=== PATIENT | female | born 1945 | race American Indian/Alaskan Native ===

== ENCOUNTER 2016-11-11 23:53 | Emergency (ER) | payer MEDICARE, BC ==
[2016-11-12] MEDS ORDERED: DiphenhydrAMINE 50 mg/ml Inj IVP STA (00:12)
[2016-11-12] MEDS ORDERED: DiphenhydrAMINE 50 mg/ml Inj ONE (00:13)
--- NOTE | 2016-11-12 00:35 | C.PDOC ---
History Of Present Illness Patient is a 71 year old female who presents to the ER with a complaint of a skin rash and itchiness for the past week. Patient denies SOB, throat swelling or chest pain. Chief Complaint (Nursing): Abnormal Skin Integrity History Per: Patient History/Exam Limitations: no limitations Onset/Duration Of Symptoms: Days (7) Current Symptoms Are (Timing): Still Present Quality Of Symptoms: Itching Recent travel outside of the [place]: No Past Medical History Reviewed: Historical Data, Nursing Documentation, Vital Signs Vital Signs: Last Vital Signs Temp 98 F 11/12/16 00:01 Pulse 93 H 11/12/16 00:01 Resp 20 11/12/16 00:01 BP 125/89 11/12/16 00:01 Pulse Ox 96 11/12/16 01:22 - Medical History PMH: Diabetes, HTN - [facility] Procedures CONTINUOUS INVASIVE MECHANICAL VENTILATION <96 CONSEC HRS (07/12/13) INSERT ENDOTRACHEAL TUBE (07/12/13) REPLACE GASTROSTOMY TUBE (07/13/14) Family History: States: Unknown Family Hx - Social History Hx Tobacco Use: No Hx Alcohol Use: No Hx Substance Use: No - Immunization History Hx Tetanus Toxoid Vaccination: No Hx Influenza Vaccination: Yes Hx Pneumococcal Vaccination: No Review Of Systems ENT: Negative for: Throat Swelling Cardiovascular: Negative for: Chest Pain Respiratory: Negative for: Shortness of Breath Skin: Positive for: Rash Physical Exam - Physical Exam Appears: Well, Non-toxic, No Acute Distress Skin: Normal Color, Warm, Dry, Rash (Upper extremities) Head: Atraumatic, Normacephalic Eye(s): bilateral: Normal Inspection, EOMI Oral Mucosa: Moist Throat: Normal, No Erythema, No Exudate Chest: Symmetrical, No Tenderness Cardiovascular: Rhythm Regular, No Murmur Respiratory: Normal Breath Sounds, No Rales, No Rhonchi, No Wheezing Gastrointestinal/Abdominal: Soft, No Tenderness Neurological/Psych: Oriented x3, Normal Speech, Normal Cognition ED Course And Treatment O2 Sat by Pulse Oximetry: 96 (Room air) Pulse Ox Interpretation: Normal Progress Note: Benadryl, pepcid and solu-medrol administered. Disposition Counseled Patient/Family Regarding: Diagnosis - Disposition Referrals: [facility] [Outside] Disposition: HOME/ ROUTINE Disposition Time: :19 Condition: STABLE Prescriptions: DiphenhydrAMINE [Benadryl] 25 mg PO Q6 #20 cap Famotidine [Pepcid] 20 mg PO BID #14 tab Instructions: General Allergic Reaction (ED) Forms: Gen Discharge Inst Guamanian Print Language: AZERBAIJANI - Clinical Impression Clinical Impression: Allergic reaction - Scribe Statement The provider has reviewed the documentation as recorded by the Scribe Martinez Argueta All medical record entries made by the Scribe were at my direction and personally dictated by me. I have reviewed the chart and agree that the record accurately reflects my personal performance of the history, physical exam, medical decision making, and the department course for this patient. I have also personally directed, reviewed, and agree with the discharge instructions and disposition.
[2016-11-12 01:29] VITALS: BP 122/86; PULSE 78; RESP 18; TEMP 98.1; O2SAT 98
== END 2016-11-12 01:29 | disposition home or self-care (01) ==
LOC: C.ER 23:53
DX: T78.49XA Other allergy, initial encounter (principal)
CPT/HCPCS: 96374; 96375; 99284; J1200; J2930

== ENCOUNTER 2017-08-22 16:25 | Inpatient (IN) | payer MEDICARE, BC ==
[2017-08-22 16:39] VITALS: BMI 19.8
[2017-08-22] MEDS ORDERED: Iodixanol 320 MG/ML 100 ML BOTTLE IV ONE (16:43)
[2017-08-22 16:55] LABS: BASO # 0.1 K/uL (0.0-0.2); BASO % 1.5 % (0.0-2.0); EOS # 0.1 K/uL (0.0-0.7); EOS % 1.4 % (0.0-4.0); HEMOGLOBIN 13.2 g/dL (11.0-16.0); LYMPH # 3.7 K/uL (1.0-4.3); LYMPH % 44.7 % (20.0-40.0); MEAN CELL VOLUME 95.2 fL (81.0-99.0); MEAN CORPUSCULAR HEMOGLOBIN 32.1 pg (27.0-31.0); MEAN CORPUSCULAR HGB CONC 33.7 g/dL (33.0-37.0); MEAN PLATELET VOLUME 9.3 fL (7.2-11.7); MONO # 0.5 K/uL (0.0-0.8); MONO % 6.6 % (0.0-10.0); NEUT # 3.8 K/uL (1.8-7.0); NEUT % 45.8 % (50.0-75.0); RBC 4.1 Mil/uL (3.80-5.20); RED CELL DISTRIBUTION WIDTH 13.2 % (11.5-14.5); WHITE BLOOD COUNT 8.3 K/uL (4.8-10.8)
[2017-08-22 17:01] LABS: ALB/GLOB RATIO 1.2 (1.0-2.1); ALBUMIN 4.2 g/dL (3.5-5.0); ALT/SGPT 19 U/L (9-52); AST/SGOT 18 U/L (14-36); BLOOD UREA NITROGEN 12 mg/dL (7-17); CALCIUM 9.1 mg/dl (8.6-10.4); GFR AFRICAN-AMERICAN > 60; GFR NON-AFRICAN AMERICAN > 60; HDL CHOLESTEROL 63 mg/dL (30-70)
[2017-08-22] MEDS ORDERED: Sodium Chloride 0.9% 500 ML IV ONE (17:09)
[2017-08-22 17:12] LABS: LDL CHOLESTEROL 142 mg/dL (0-129)
--- NOTE | 2017-08-22 17:56 | RAD ---
HISTORY: Code Stroke COMPARISON: Chest x-ray portion of obstructive series performed 01/26/14 TECHNIQUE: Chest, one view. FINDINGS: Catheter projects over the soft tissues of the right neck, right kendy thorax, and right abdomen consistent with PRODUCT DESIGN MANAGER shunt. LUNGS: Linear atelectasis, right midlung zone. Please note that chest x-ray has limited sensitivity for the detection of pulmonary masses. PLEURA: No significant pleural effusion identified. No definite pneumothorax . CARDIOVASCULAR: Heart size appears within normal limits. Ectatic aorta. OSSEOUS STRUCTURES: Degenerative changes. VISUALIZED UPPER ABDOMEN: Unremarkable. OTHER FINDINGS: None. IMPRESSION: PRODUCT DESIGN MANAGER shunt catheter. Linear atelectasis, right midlung zone. Ectatic aorta.
[2017-08-22 18:18] LABS: SQUAMOUS EPITHIAL < 1 /hpf (0-5); URINE BILIRUBIN NEGATIVE (NEGATIVE); URINE BLOOD NEGATIVE (NEGATIVE); URINE CLARITY Clear (Clear); URINE COLOR Colorless (YELLOW); URINE GLUCOSE (UA) 3+ mg/dL (Normal); URINE LEUKOCYTE ESTERASE NEG Leu/uL (Negative); URINE PROTEIN NEGATIVE (NEGATIVE); URINE UROBILINOGEN NORMAL mg/dL (0.2-1.0)
--- NOTE | 2017-08-22 18:46 | C.PDOC ---
History Of Present Illness Pt's went shopping around 1:30pm today and when he returned home ( around 2:30 pm) she was confused and "not making sense". Time Seen by Provider: 08/22/17 16:35 Chief Complaint (Nursing): Altered Mental Status History Per: Patient, EMS Onset/Duration Of Symptoms: Hrs (this afternoon) Onset Of Symptoms: Cannot Confirm Onset Current Symptoms Are (Timing): Better Usual Baseline: Alert Oriented (but not always to time), Ambulatory (with walker ) Exacerbating Factor(s): Unknown Severity: Moderate Additional History Per: Family (), Prior Records Associated Symptoms: Disoriented, Confused Past Medical History Reviewed: Historical Data, Nursing Documentation, Vital Signs Vital Signs: Last Vital Signs Temp 98.1 F 08/22/17 16:31 Pulse 59 L 08/22/17 17:46 Resp 14 08/22/17 17:46 BP 152/79 H 08/22/17 17:46 Pulse Ox 98 08/22/17 18:47 - Medical History PMH: Diabetes, HTN Other Surgeries: Brain aneurysm repair. CHEMIST STEROIDS Shunt. - [facility] Procedures CONTINUOUS INVASIVE MECHANICAL VENTILATION <96 CONSEC HRS (07/12/13) INSERT ENDOTRACHEAL TUBE (07/12/13) REPLACE GASTROSTOMY TUBE (07/13/14) Family History: States: Unknown Family Hx - Social History Hx Tobacco Use: No Hx Alcohol Use: No Hx Substance Use: No - Immunization History Hx Tetanus Toxoid Vaccination: No Hx Influenza Vaccination: Yes Hx Pneumococcal Vaccination: No Review Of Systems Except As Marked, All Systems Reviewed And Found Negative. Constitutional: Positive for: Malaise (?). Negative for: Fever Cardiovascular: Negative for: Chest Pain Respiratory: Negative for: Cough, Shortness of Breath Gastrointestinal: Negative for: Vomiting, Abdominal Pain, Diarrhea Musculoskeletal: Negative for: Neck Pain Skin: Negative for: Rash Neurological: Positive for: Confusion, Dizziness. Negative for: Weakness, Numbness, Headache Physical Exam - Physical Exam Appears: Non-toxic, No Acute Distress, Chronically Ill Skin: Normal Color, Warm, Dry Head: Atraumatic Eye(s): bilateral: PERRL, EOMI Neck: Normal ROM, Supple Cardiovascular: Rhythm Regular Respiratory: Normal Breath Sounds, No Accessory Muscle Use Gastrointestinal/Abdominal: Soft, No Tenderness Extremity: Normal ROM Neurological/Psych: Normal Speech, Normal Motor, Normal Sensation, Slow To Respond With Command Disoriented To: Time ED Course And Treatment - Laboratory Results Result Diagrams: 08/22/17 16:45 08/22/17 16:45 Lab Interpretation: No Acute Changes ECG: Interpreted By Me, Viewed By Me ECG Rhythm: Sinus Rhythm ECG Interpretation: No Acute Changes Rate From EC O2 Sat by Pulse Oximetry: 98 Pulse Ox Interpretation: Normal - Radiology CXR: Viewed By Me, Read By Radiologist CXR Interpretation: Yes: Other (CHEMIST STEROIDS shunt catheter. Linear atelectasis, right midlung zone. Ectatic aorta.) - CT Scan/US CT head Other Rad Studies (CT/US): Read By Radiologist, Radiology Report Reviewed CT/US Interpretation: No acute findings. CTA head/neck Other Rad Studies (CT/US): Read By Radiologist, Radiology Report Reviewed CT/US Interpretation: No acute findings. Progress Note: Pt's states that pt is now at baseline mental status. - Physician Consult Information Physician Contacted: Wendy Shukla (Neurology) Outcome Of Conversation: She is concerned that pt may have had a seizure. She recommends pt to be admitted to the hospital for further evaluation and treatment, including EEG. NIHSS Stroke Scale - Date/Time Evaluation Performed Date Performed: 08/22/17 When Was NIHSS Performed: Baseline - How Severe is the Stoke Level of Consciousness: 0=Alert LOC to Questions: 2=Neither correct LOC to commands: 0=Obeys both correctly Best Gaze: 0=Normal Visual: 0=No visual loss Facial: 0=Normal Motor Arm - Left: 0=No drift Motor Arm - Right: 0=No drift Motor Leg - Left: 0=No drift Motor Leg - Right: 0=No drift Limb Ataxia: 0=Absent Sensory: 0=Normal Best Language: 0=No aphasia Dysarthia: 0=Normal articulation Extinction & Inattention (Neglect): 0=Normal, no object Score: 2 Severity Of Stroke: 1-4= Minor Stroke Progress - Interventions Interventions:: Observation, Intravenous fluid - Data Reviewed Data Reviewed: Lab, Diagnostic imaging, EKG, Old records - Patient Status Patient status: Mostly improved - Continuity of Care Discussed patient case with:: Patient, Family-HIPPA compliant, ED Nurse, On- call PMD-pt unassigned Discussed pt. case with webmethods consultant/specialty: Neurology - Patient Plan Patient Plan: Admission, Telemetry rTPA Inclusion/Exclusion - Inclusion Criteria for Altepase Patient is 18 years or Older: Yes Clinical DX Ischemic Stroke Cause Neurological Deficit: Yes Time of Onset Established Less Than 270 Mins Before TX Begin: No Risk/Benefit Discussed With Patient/Family Member Present: No - Exclusion Criteria for Altepase History of: Brain Aneurysm Disposition Discussed With DrKodak: Aaron Smith Comment: He accepted pt on hospitalist service. Counseled Patient/Family Regarding: Studies Performed, Diagnosis - Disposition Disposition: HOSPITALIZED Disposition Time: 18:54 Condition: GUARDED - Clinical Impression Clinical Impression: Acute confusional state
--- NOTE | 2017-08-22 19:54 | CP.PCM.HP ---
<Carol McgovernKodak - Last Filed: 08/22/17 21:52> History of Present Illness - History of Present Illness History of Present Illness: CC: altered mental status and slurred speech HPI: Patient is a 71 year old female with past medical history of HTN, DMII, chronic constipation, and brain aneurysm presents today because of an episode of slurred speech and confusion. Patient lives with her who helps her with her ADLs. This morning patient was feeling fine and acting normally. Her put her in bed before he went to go to the grocery store because he does not like her walking around the house alone because she is at baseline unsteady on her feet. Patient has left sided leg weakness at baseline and uses a cane to help her walk. When patient's returned about an hour later, patient was awake but talking nonsense and slurring her speech to the point that he could not understand anything she was saying. About 10 minutes after finding her like this he called 911 and EMS arrived about another 10 minutes later. By the time they arrived the patient was speaking more clearly. Patient had no chest pain, nausea, vomiting, bowel or bladder incontinence during this episode. did not see any shaking or any facial asymmetry. In the ED patient says she is feeling much better. She is not having any slurred speech and believes she is 100% better. Patient feels slightly lightheaded which she says started during the episode. Patient doesn't fully remember what happened, but does remember being evaluated by EMS. When asked the date patient is unsure, but knows it is August. Patient says it is 2021. Patient remembers that the last President was [place], but does not know the name of the current president. Patient knows she is in [place] in a hospital. Patient's says this is about her baseline and she is often forgetful of the date. Patient admits to generalized weakness. Patient denies any headache, chest pain, shortness of breath, abdominal pain, nausea, vomiting, constipation, or diarrhea. PMD: Dr. Ness - [phone] Neuro: Dr. Aguirre (patient gets annual MRI since aneurysm) [phone] PMHx: brain aneurysm (06/11/14), HTN, DM II, chronic constipation PSurg: brain stent placed in 2013 Fam hx: Mom: DM, HTN; Dad: HTN, DM Social: denies tobacco, alcohol, drugs Home Meds: Glipizide 5mg daily, Januvia 25mg po BID, Metformin 500mg BID, Clonidine .1mg daily, Amlodipine 5mg HS, Miralax HS Allergies: Codeine, Penicillin, Thiopental- nausea/ vomiting Present on Admission - Present on Admission Any Indicators Present on Admission: No History of DVT/PE: No History of Uncontrolled Diabetes: No Urinary Catheter: No Decubitus Ulcer Present: No Review of Systems - Constitutional Constitutional: absent: Chills, Fever - EENT Eyes: absent: Blurred Vision Nose/Mouth/Throat: absent: Sore Throat - Cardiovascular Cardiovascular: absent: Chest Pain, Dyspnea, Leg Edema, Palpitations - Respiratory Respiratory: absent: Cough, Dyspnea, Wheezing, Chest Congestion, Pain with Coughing - Gastrointestinal Gastrointestinal: absent: Abdominal Pain, Constipation, Diarrhea, Nausea, Vomiting - Genitourinary Genitourinary: absent: Difficulty Urinating, Dysuria, Hematuria - Musculoskeletal Musculoskeletal: Muscle Weakness - Integumentary Integumentary: absent: Changing Lesions - Neurological Neurological: Dizziness. absent: Abnormal Gait, Abnormal Movements, Focal Weakness, Tingling, Tremor - Endocrine Endocrine: absent: Palpitations - Hematologic/Lymphatic Hematologic: absent: Easy Bleeding, Easy Bruising Past Patient History - Infectious Disease Hx of Infectious Diseases: None - Tetanus Immunizations Tetanus Immunization: Unknown - Past Medical History & Family History Past Medical History?: Yes - Past Social History Smoking Status: Never Smoked - CARDIAC Hx Hypertension: Yes - NEUROLOGICAL Hx Neurological Disorder: Yes (SEE COMMENT) HX Cerebrovascular Accident: Yes Other/Comment: brain aneurysm - ENDOCRINE/METABOLIC Hx Endocrine Disorders: Yes Hx Diabetes Mellitus Type 2: Yes - MUSCULOSKELETAL/RHEUMATOLOGICAL Hx Musculoskeletal Disorders: Yes Hx Falls: No Hx Unsteady Gait: Yes - GASTROINTESTINAL Hx Gastrointestinal Disorders: Yes (SEE COMMENT) Other/Comment: peg tube - PSYCHIATRIC Hx Substance Use: No - SURGICAL HISTORY Hx Surgeries: Yes (SEE COMMENT) Other/Comment: peg tube, brain sx - ANESTHESIA Hx Anesthesia: Yes Hx Anesthesia Reactions: No Hx Malignant Hyperthermia: No Meds Allergies/Adverse Reactions: Allergies Allergy/AdvReac Type Severity Reaction Status Date / Time codeine Allergy Verified 08/22/17 17:42 Penicillins Allergy Verified 08/22/17 17:42 thiopental Allergy Verified 08/22/17 17:42 tomato Allergy Verified 08/22/17 17:42 Physical Exam - Constitutional Appears: Non-toxic, No Acute Distress - Head Exam Head Exam: ATRAUMATIC, NORMAL INSPECTION, NORMOCEPHALIC - Eye Exam Eye Exam: EOMI, Normal appearance - ENT Exam ENT Exam: Mucous Membranes Moist - Respiratory Exam Respiratory Exam: Clear to Auscultation Bilateral, NORMAL BREATHING PATTERN. absent: Rales, Rhonchi, Wheezes, Respiratory Distress, Stridor - Cardiovascular Exam Cardiovascular Exam: REGULAR RHYTHM, RRR, +S1, +S2. absent: Irregular Rhythm, JVD - GI/Abdominal Exam GI & Abdominal Exam: Normal Bowel Sounds, Soft. absent: Tenderness - Extremities Exam Extremities exam: Positive for: normal inspection. Negative for: pedal edema - Back Exam Back exam: NORMAL INSPECTION - Neurological Exam Neurological exam: Alert - Expanded Neurological Exam Expanded Patient oriented to: person, place Speech: Fluid Speech Cranial nerves: EOM's Intact: Normal, Facial Palsey w/Forehead Movement: Normal , Facial Palsey w/o Forehead Movement: Normal, Facial Sensation: Normal, Nystagmus: Normal, Tongue Deviation: Normal Ataxia: No Cerebellar Function: Finger to Nose: Normal Upper motor neuron: Babinski Sign: Normal, Nelson Neglect: Normal, Pronator Drift : Normal, Sensory Extinction: Normal Sensory exam: Lower Extremity 2 Point Discrimination: Normal, Lower Extremity Light Touch: Normal Neuro motor strength exam: Left Upper Extremity: 5, Right Upper Extremity: 5, Left Lower Extremity: 5, Right Lower Extremity: 5 Coma Scale Eye Opening: SPONTANEOUS Coma Scale Motor Response: OBEYS COMMANDS Coma Scale Verbal: Oriented (does not know year, but as per this is normal for her ) Coma Scale Total: 15 - Psychiatric Exam Psychiatric exam: Normal Affect, Normal Mood - Skin Skin Exam: Intact, Normal Color, Warm Results - Vital Signs Recent Vital Signs: Last Vital Signs Temp 98.1 F 08/22/17 16:31 Pulse 59 L 08/22/17 17:46 Resp 14 08/22/17 17:46 BP 152/79 H 08/22/17 17:46 Pulse Ox 98 08/22/17 18:59 - Labs Result Diagrams: 08/22/17 16:45 08/22/17 16:45 Labs: Laboratory Results - last 24 hr 08/22/17 08/22/17 08/22/17 16:45 16:45 16:45 WBC 8.3 D RBC 4.10 Hgb 13.2 D Hct 39.0 MCV 95.2 MCH 32.1 H MCHC 33.7 RDW 13.2 Plt Count 270 D MPV 9.3 Neut % (Auto) 45.8 L Lymph % (Auto) 44.7 H [place] % (Auto) 6.6 Eos % (Auto) 1.4 Baso % (Auto) 1.5 Neut # (Auto) 3.8 Lymph # (Auto) 3.7 [place] # (Auto) 0.5 Eos # (Auto) 0.1 Baso # (Auto) 0.1 PT 11.0 INR 1.0 APTT 21 Sodium 139 Potassium 4.1 Chloride 100 Carbon Dioxide 26 Anion Gap 17 BUN 12 Creatinine 0.5 L Est GFR ( Amer) > 60 Est GFR (Non-Af Amer) > 60 Random Glucose 213 H Hemoglobin A1c Calcium 9.1 Total Bilirubin 0.5 AST 18 ALT 19 Alkaline Phosphatase 92 Troponin I < 0.0120 Total Protein 7.9 Albumin 4.2 Globulin 3.7 Albumin/Globulin Ratio 1.2 Triglycerides 116 Cholesterol 225 H LDL Cholesterol Direct 142 H HDL Cholesterol 63 Urine Color Urine Clarity Urine pH Ur Specific Hayes Urine Protein Urine Glucose (UA) Urine Ketones Urine Blood Urine Nitrate Urine Bilirubin Urine Urobilinogen Ur Leukocyte Esterase Urine RBC (Auto) Ur Squamous Epith Cells Blood Type Antibody Screen 08/22/17 08/22/17 08/22/17 16:45 17:46 18:13 WBC RBC Hgb Hct MCV MCH MCHC RDW Plt Count MPV Neut % (Auto) Lymph % (Auto) [place] % (Auto) Eos % (Auto) Baso % (Auto) Neut # (Auto) Lymph # (Auto) [place] # (Auto) Eos # (Auto) Baso # (Auto) PT INR APTT Sodium Potassium Chloride Carbon Dioxide Anion Gap BUN Creatinine Est GFR ( Amer) Est GFR (Non-Af Amer) Random Glucose Hemoglobin A1c 8.1 H Calcium Total Bilirubin AST ALT Alkaline Phosphatase Troponin I Total Protein Albumin Globulin Albumin/Globulin Ratio Triglycerides Cholesterol LDL Cholesterol Direct HDL Cholesterol Urine Color Colorless Urine Clarity Clear Urine pH 7.0 Ur Specific Hayes 1.030 Urine Protein Negative Urine Glucose (UA) 3+ H Urine Ketones Negative Urine Blood Negative Urine Nitrate Negative Urine Bilirubin Negative Urine Urobilinogen Normal Ur Leukocyte Esterase Neg Urine RBC (Auto) < 1 Ur Squamous Epith Cells < 1 Blood Type AB POSITIVE Antibody Screen Negative Assessment & Plan - Assessment and Plan (Free Text) Assessment: 1. Brief episode of AMS resolved, continue to monitor admit to tele EKG-NSR at 60bmp CTA head and neck- no acute findings Head CT w/o contrast- age related atrophy and chronic white matter ischemic changes, with no evidence of an acute intracranial abnormality. multifocal encephalomalacia probably secondary to previous episodes of infarction. Right frontal approach shunt in place. No evidence of hydrocephalus. 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 Linear atelectasis, right midlung zone. Ectatic aorta. EEG ordered Neuro, Dr. Shukla, consulted - help appreciated 2. DMII continue home medication: Glipizide 5mg po daily, Januvia 25mg po BID hold metformin due to iv contrast given ISS-low accuchecks ACHS 3. HTN continue home medications: Clonidine .1mg po daily Amlodipine 5mg po HS 4. Chronic constipation continue home medication Miralax HS 5. Prophylaxis Heparin 5000 u sc q8h <Dawit Tinoco P - Last Filed: 08/23/17 07:10> Results - Vital Signs Recent Vital Signs: Last Vital Signs Temp 97.9 F 08/23/17 02:19 Pulse 78 08/23/17 02:19 Resp 20 08/23/17 02:19 BP 170/82 H 08/23/17 02:19 Pulse Ox 98 08/23/17 02:19 - Labs Result Diagrams: 08/22/17 16:45 08/22/17 16:45 Labs: Laboratory Results - last 24 hr 08/22/17 08/22/17 08/22/17 16:45 16:45 16:45 WBC 8.3 D RBC 4.10 Hgb 13.2 D Hct 39.0 MCV 95.2 MCH 32.1 H MCHC 33.7 RDW 13.2 Plt Count 270 D MPV 9.3 Neut % (Auto) 45.8 L Lymph % (Auto) 44.7 H [place] % (Auto) 6.6 Eos % (Auto) 1.4 Baso % (Auto) 1.5 Neut # (Auto) 3.8 Lymph # (Auto) 3.7 [place] # (Auto) 0.5 Eos # (Auto) 0.1 Baso # (Auto) 0.1 PT 11.0 INR 1.0 APTT 21 Sodium 139 Potassium 4.1 Chloride 100 Carbon Dioxide 26 Anion Gap 17 BUN 12 Creatinine 0.5 L Est GFR ( Amer) > 60 Est GFR (Non-Af Amer) > 60 POC Glucose (mg/dL) Random Glucose 213 H Hemoglobin A1c Calcium 9.1 Total Bilirubin 0.5 AST 18 ALT 19 Alkaline Phosphatase 92 Troponin I < 0.0120 Total Protein 7.9 Albumin 4.2 Globulin 3.7 Albumin/Globulin Ratio 1.2 Triglycerides 116 Cholesterol 225 H LDL Cholesterol Direct 142 H HDL Cholesterol 63 Urine Color Urine Clarity Urine pH Ur Specific Hayes Urine Protein Urine Glucose (UA) Urine Ketones Urine Blood Urine Nitrate Urine Bilirubin Urine Urobilinogen Ur Leukocyte Esterase Urine RBC (Auto) Ur Squamous Epith Cells Blood Type Antibody Screen 08/22/17 08/22/17 08/22/17 16:45 17:46 18:13 WBC RBC Hgb Hct MCV MCH MCHC RDW Plt Count MPV Neut % (Auto) Lymph % (Auto) [place] % (Auto) Eos % (Auto) Baso % (Auto) Neut # (Auto) Lymph # (Auto) [place] # (Auto) Eos # (Auto) Baso # (Auto) PT INR APTT Sodium Potassium Chloride Carbon Dioxide Anion Gap BUN Creatinine Est GFR ( Amer) Est GFR (Non-Af Amer) POC Glucose (mg/dL) Random Glucose Hemoglobin A1c 8.1 H Calcium Total Bilirubin AST ALT Alkaline Phosphatase Troponin I Total Protein Albumin Globulin Albumin/Globulin Ratio Triglycerides Cholesterol LDL Cholesterol Direct HDL Cholesterol Urine Color Colorless Urine Clarity Clear Urine pH 7.0 Ur Specific Hayes 1.030 Urine Protein Negative Urine Glucose (UA) 3+ H Urine Ketones Negative Urine Blood Negative Urine Nitrate Negative Urine Bilirubin Negative Urine Urobilinogen Normal Ur Leukocyte Esterase Neg Urine RBC (Auto) < 1 Ur Squamous Epith Cells < 1 Blood Type AB POSITIVE Antibody Screen Negative 08/22/17 08/23/17 21:24 06:14 WBC RBC Hgb Hct MCV MCH MCHC RDW Plt Count MPV Neut % (Auto) Lymph % (Auto) [place] % (Auto) Eos % (Auto) Baso % (Auto) Neut # (Auto) Lymph # (Auto) [place] # (Auto) Eos # (Auto) Baso # (Auto) PT INR APTT Sodium Potassium Chloride Carbon Dioxide Anion Gap BUN Creatinine Est GFR ( Amer) Est GFR (Non-Af Amer) POC Glucose (mg/dL) 192 H 163 H Random Glucose Hemoglobin A1c Calcium Total Bilirubin AST ALT Alkaline Phosphatase Troponin I Total Protein Albumin Globulin Albumin/Globulin Ratio Triglycerides Cholesterol LDL Cholesterol Direct HDL Cholesterol Urine Color Urine Clarity Urine pH Ur Specific [place] Urine Protein Urine Glucose (UA) Urine Ketones Urine Blood Urine Nitrate Urine Bilirubin Urine Urobilinogen Ur Leukocyte Esterase Urine RBC (Auto) Ur Squamous Epith Cells Blood Type Antibody Screen Attending/Attestation - Attestation I have personally seen and examined this patient.: Yes I have fully participated in the care of the patient.: Yes I have reviewed all pertinent clinical information: Yes Notes (Text): Assessment * Transient episode of confusion as above with complete recovery, in pt with h/ o aneurysm, ic bleeding, s/p R side svp digital sales food & cooking shunt, 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 No acute changes on CT and CTA of head. * H/o dm glucose was 264mg/dl by ems record in the field. Plan * Observe neurocheck * EEG * Neurology consult * DVT prophylaxis * See orders for detail.
[2017-08-22] MEDS ORDERED: Dextrose 50% SYRINGE Inj (50 ml) IV PRN (21:32)
[2017-08-22] MEDS: (Novolin R) Insulin Human Regular 100 units/ml vial SC SCH (22:06)
[2017-08-22] MEDS: POLYETHYLENE GLYCOL 3350 17 GM/Dose PACKET PO SCH (22:26)
[2017-08-23 08:12] LABS: BASO % 0.5 % (0.0-2.0); EOS # 0.1 K/uL (0.0-0.7); EOS % 0.9 % (0.0-4.0); HEMOGLOBIN 13.6 g/dL (11.0-16.0); LYMPH # 4.1 K/uL (1.0-4.3); MEAN CELL VOLUME 94.6 fL (81.0-99.0); MEAN CORPUSCULAR HEMOGLOBIN 31.9 pg (27.0-31.0); MEAN CORPUSCULAR HGB CONC 33.7 g/dL (33.0-37.0); MEAN PLATELET VOLUME 9.1 fL (7.2-11.7); MONO # 0.5 K/uL (0.0-0.8); MONO % 6.1 % (0.0-10.0); NEUT # 4.1 K/uL (1.8-7.0); NEUT % 46.5 % (50.0-75.0); RBC 4.26 Mil/uL (3.80-5.20); WHITE BLOOD COUNT 8.9 K/uL (4.8-10.8)
[2017-08-23 08:24] LABS: ALB/GLOB RATIO 1.3 (1.0-2.1); ALBUMIN 4.3 g/dL (3.5-5.0); ALT/SGPT 19 U/L (9-52); AST/SGOT 18 U/L (14-36); BLOOD UREA NITROGEN 12 mg/dL (7-17); CALCIUM 9.2 mg/dl (8.6-10.4); GFR AFRICAN-AMERICAN > 60; GFR NON-AFRICAN AMERICAN > 60
[2017-08-23] MEDS: (Novolin R) Insulin Human Regular 100 units/ml vial SC SCH ×4 (08:56→21:26)
[2017-08-23] MEDS: GlipiZIDE 2.5 mg Tab PO SCH (10:39)
--- NOTE | 2017-08-23 11:18 | CT ---
PROCEDURE: CT Angiography of the neck and brain dated 04/2018 HISTORY: Confusion/disorientation, h/o brain aneurysm. COMPARISON: Comparison made with prior CT scan brain 08/22/2017 TECHNIQUE: IV contrast dose: 100 cc Visipaque 320 Radiation Dose - DLP: 405.01 mGy-cm This CT exam was performed using one or more of the following dose reduction techniques: Automated exposure control, adjustment of the mA and/or kV according to patient size, and/or use of iterative reconstruction technique. . FINDINGS: The that the common carotid arteries, carotid bifurcations and internal carotid arteries including the petrous segments are widely patent without occlusion or significant stenosis. . There is minor calcified atherosclerotic plaque seen along both carotid siphons right more exuberant than the left however no evidence of occlusion nor significant stenosis. There is mild asymmetry of the internal carotid arteries,, right-side of which is slightly larger in caliber more dominant than the left side. . There is marked asymmetry of the vertebral arteries right-sided which is larger in caliber/more dominant than the left side. The basilar artery is patent. The left A1 segment is not seen with certainty and presumed to be hypoplastic. Embolization coils in the region of the anterior communicating artery again noted. No definitive residual aneurysm seen on this exam Distal branches of the middle and anterior cerebral arteries are widely patent. The distal branches of the posterior cerebral arteries are also patent. No evidence of large residual aneurysm neck is identified in the adjacent to the aneurysm clip however due to streak and beam hardening artifact evaluation is limited. Re- demonstrated is in situ PILLOW AGENT shunt tube which enters a right frontal fracisco hole traverses through the right frontal lobe and terminates just midline near the foramen of Monro. . Chronic left cerebellar infarct and suspected smaller chronic right cerebellar infarct. . Age-indeterminate right cerebellar infarct. There are areas of encephalomalacia inferior frontal poles right greater than left of with extension of encephalomalacia superiorly into the superior aspect of the right frontal lobe surrounding the PILLOW AGENT shunt tube. . . In addition, moderate diffuse/confluent chronic periventricular white matter changes and scattered on bilateral basal nuclei ischemic changes are again noted. Bilateral cerebellar infarcts are also noted. Moderate to significant generalized volume loss Left anterior parietal fracisco hole also present. 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 . No obvious residual aneurysm neck seen though evaluation is limited the due to surrounding streak and beam hardening artifact arising from the aneurysm coils. In situ PILLOW AGENT shunt tube. Extensive encephalomalacia changes right frontal lobe and to a lesser degree left inferior frontal pole. Chronic left and suspected smaller chronic right cerebellar infarct changes. Common carotid arteries, carotid bifurcations and internal carotid artery is widely patent. There is mild asymmetry of the internal carotid arteries right-sided which is slightly more dominant than the left. . Minimal calcified plaque both cavernous carotid arteries without significant stenosis. There is also marked asymmetry of the vertebral arteries right-sided which is larger in caliber/ more dominant than the left side. Preliminary report provided by Dr. Mojica of [facility] overnight radiology service
--- NOTE | 2017-08-23 11:27 | CT ---
PROCEDURE: CT HEAD WITHOUT CONTRAST. HISTORY: Confusion/disorientation, h/o brain aneurysm COMPARISON: 01/23/2014 TECHNIQUE: Axial computed tomography images were obtained through the head/brain without intravenous contrast. Radiation dose: Total exam DLP = 802.60 mGy-cm. This CT exam was performed using one or more of the following dose reduction techniques: Automated exposure control, adjustment of the mA and/or kV according to patient size, and/or use of iterative reconstruction technique. FINDINGS: HEMORRHAGE: No intracranial hemorrhage. BRAIN: No intracranial mass. No evidence of acute infarct. There is old inferior right frontal encephalomalacia common nonspecific. This is unchanged from prior examination. There is high right frontal encephalomalacia, unchanged. There is an old left cerebellar hemispheric infarct. There is moderate patchy and confluent periventricular and deep white matter lucency consistent with microvascular ischemic change. An aneurysm clip or coil is seen in the midline anterior cranial fossa. VENTRICLES: No hydrocephalus. No midline shift. Right frontal ventriculostomy catheter terminates in the midline. CALVARIUM: There is a left frontal calvarial fracisco hole. PARANASAL SINUSES: Unremarkable as visualized. No significant inflammatory changes. MASTOID AIR CELLS: Unremarkable as visualized. No inflammatory changes. OTHER FINDINGS: None. IMPRESSION: No intracranial mass, hemorrhage or evidence of acute infarct. Evidence of prior aneurysm repair. Multifocal encephalomalacia, unchanged. Chronic white matter ischemic change. Right frontal ventriculostomy catheter. Preliminary interpretation of this examination was reported by [facility] at 5:10 p.m. on 08/22/2017. There is concurrence of this report with the preliminary interpretation.
--- NOTE | 2017-08-23 12:22 | CARD ---
APPROVED REPORT EKG Measurement Heart [id number] ND [id number] <Conclusion> Normal sinus rhythm Normal ECG
--- NOTE | 2017-08-23 13:44 | CP.PCM.CON ---
History of Present Illness - History of Present Illness History of Present Illness: Mrs. 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 She has had multiple previous infarcts in addition to her history of subarachnoid hemorrhage. The patient is not back to her baseline. She requires some help with her ADLs at baseline and is dependent on her for assistance. When I saw the patient, she was having lunch and did not have any complaints. She had very little recall of yesterday's events. There was no report of urinary/bowel incontinence or tongue biting. There was no evidence of loss of consciousness. Review of Systems - Review of Systems All systems: reviewed and no additional remarkable complaints except Past Patient History - Infectious Disease Hx of Infectious Diseases: None - Tetanus Immunizations Tetanus Immunization: Unknown - Past Medical History & Family History Past Medical History?: Yes - Past Social History Smoking Status: Never Smoked - CARDIAC Hx Cardiac Disorders: Yes Hx Hypertension: Yes - PULMONARY Hx Respiratory Disorders: No - NEUROLOGICAL Hx Neurological Disorder: Yes (SEE COMMENT) HX Cerebrovascular Accident: Yes Other/Comment: brain aneurysm - HEENT Hx HEENT Problems: No - RENAL Hx Chronic Kidney Disease: No - ENDOCRINE/METABOLIC Hx Endocrine Disorders: Yes Hx Diabetes Mellitus Type 2: Yes - HEMATOLOGICAL/ONCOLOGICAL Hx Blood Disorders: No - INTEGUMENTARY Hx Dermatological Problems: No - MUSCULOSKELETAL/RHEUMATOLOGICAL Hx Musculoskeletal Disorders: Yes Hx Falls: No Hx Unsteady Gait: Yes - GASTROINTESTINAL Hx Gastrointestinal Disorders: Yes (SEE COMMENT) Other/Comment: peg tube - GENITOURINARY/GYNECOLOGICAL Hx Genitourinary Disorders: No - PSYCHIATRIC Hx Psychophysiologic Disorder: No Hx Substance Use: No - SURGICAL HISTORY Hx Surgeries: Yes (SEE COMMENT) Other/Comment: peg tube, brain sx - ANESTHESIA Hx Anesthesia: Yes Hx Anesthesia Reactions: No Hx Malignant Hyperthermia: No Meds Allergies/Adverse Reactions: Allergies Allergy/AdvReac Type Severity Reaction Status Date / Time codeine Allergy Verified 08/22/17 17:42 Penicillins Allergy Verified 08/22/17 17:42 thiopental Allergy Verified 08/22/17 17:42 tomato Allergy Verified 08/22/17 17:42 - Medications Medications: Current Medications Amlodipine Besylate (Norvasc) 5 mg PO HS [facility] Last Admin: 08/22/17 22:26 Dose: 5 mg Clonidine HCl (Catapres) 0.1 mg PO DAILY [facility] Last Admin: 08/23/17 10:38 Dose: 0.1 mg Dextrose (Dextrose 50% Inj) 0 ml IV STAT PRN; Protocol PRN Reason: Hypoglycemia Protocol Dextrose (Glutose 15) 0 gm PO ONCE PRN; Protocol PRN Reason: Hypoglycemia Protocol Glipizide (Glucotrol) 5 mg PO DAILY [facility] Last Admin: 08/23/17 10:39 Dose: 5 mg Heparin Sodium (Porcine) (Heparin) 5,000 units SC Q8 [facility] Last Admin: 08/23/17 12:59 Dose: 5,000 units Insulin Human Regular (Novolin R) 0 unit SC ACHS [facility] PRN Reason: Protocol Last Admin: 08/23/17 12:59 Dose: 1 unit Polyethylene Glycol (Miralax) 17 gm PO HS [facility] Last Admin: 08/22/17 22:26 Dose: 17 gm Sitagliptin Phosphate (Januvia) 25 mg PO BID [facility] Last Admin: 08/23/17 10:38 Dose: 25 mg Physical Exam - Neurological Exam Neurological exam: Abnormal Gait, CN II-XII Intact, Oriented x3 Additional comments: Brisk reflexes on the left C5/6 and L4/5. Sensation is intact. Strength is generally diminished with slightly more weakness on the left. Romberg was negative. Plantar responses were upgoing. Results - Vital Signs Recent Vital Signs: Last Vital Signs Temp 98.8 F 08/23/17 08:25 Pulse 74 08/23/17 08:25 Resp 20 08/23/17 08:25 BP 166/85 H 08/23/17 08:25 Pulse Ox 97 08/23/17 08:25 - Labs Result Diagrams: 08/23/17 08:00 08/23/17 08:00 Labs: Laboratory Results - last 24 hr 08/22/17 08/22/17 08/22/17 16:45 16:45 16:45 WBC 8.3 D RBC 4.10 Hgb 13.2 D Hct 39.0 MCV 95.2 MCH 32.1 H MCHC 33.7 RDW 13.2 Plt Count 270 D MPV 9.3 Neut % (Auto) 45.8 L Lymph % (Auto) 44.7 H [place] % (Auto) 6.6 Eos % (Auto) 1.4 Baso % (Auto) 1.5 Neut # (Auto) 3.8 Lymph # (Auto) 3.7 [place] # (Auto) 0.5 Eos # (Auto) 0.1 Baso # (Auto) 0.1 PT 11.0 INR 1.0 APTT 21 Sodium 139 Potassium 4.1 Chloride 100 Carbon Dioxide 26 Anion Gap 17 BUN 12 Creatinine 0.5 L Est GFR ( Amer) > 60 Est GFR (Non-Af Amer) > 60 POC Glucose (mg/dL) Random Glucose 213 H Hemoglobin A1c Calcium 9.1 Phosphorus Magnesium Total Bilirubin 0.5 AST 18 ALT 19 Alkaline Phosphatase 92 Troponin I < 0.0120 Total Protein 7.9 Albumin 4.2 Globulin 3.7 Albumin/Globulin Ratio 1.2 Triglycerides 116 Cholesterol 225 H LDL Cholesterol Direct 142 H HDL Cholesterol 63 Urine Color Urine Clarity Urine pH Ur Specific [place] Urine Protein Urine Glucose (UA) Urine Ketones Urine Blood Urine Nitrate Urine Bilirubin Urine Urobilinogen Ur Leukocyte Esterase Urine RBC (Auto) Ur Squamous Epith Cells Blood Type Antibody Screen 08/22/17 08/22/17 08/22/17 16:45 17:46 18:13 WBC RBC Hgb Hct MCV MCH MCHC RDW Plt Count MPV Neut % (Auto) Lymph % (Auto) [place] % (Auto) Eos % (Auto) Baso % (Auto) Neut # (Auto) Lymph # (Auto) [place] # (Auto) Eos # (Auto) Baso # (Auto) PT INR APTT Sodium Potassium Chloride Carbon Dioxide Anion Gap BUN Creatinine Est GFR ( Amer) Est GFR (Non-Af Amer) POC Glucose (mg/dL) Random Glucose Hemoglobin A1c 8.1 H Calcium Phosphorus Magnesium Total Bilirubin AST ALT Alkaline Phosphatase Troponin I Total Protein Albumin Globulin Albumin/Globulin Ratio Triglycerides Cholesterol LDL Cholesterol Direct HDL Cholesterol Urine Color Colorless Urine Clarity Clear Urine pH 7.0 Ur Specific [place] 1.030 Urine Protein Negative Urine Glucose (UA) 3+ H Urine Ketones Negative Urine Blood Negative Urine Nitrate Negative Urine Bilirubin Negative Urine Urobilinogen Normal Ur Leukocyte Esterase Neg Urine RBC (Auto) < 1 Ur Squamous Epith Cells < 1 Blood Type AB POSITIVE Antibody Screen Negative 08/22/17 08/23/17 08/23/17 21:24 06:14 08:00 WBC 8.9 RBC 4.26 Hgb 13.6 Hct 40.3 MCV 94.6 MCH 31.9 H MCHC 33.7 RDW 13.0 Plt Count 299 MPV 9.1 Neut % (Auto) 46.5 L Lymph % (Auto) 46.0 H [place] % (Auto) 6.1 Eos % (Auto) 0.9 Baso % (Auto) 0.5 Neut # (Auto) 4.1 Lymph # (Auto) 4.1 [place] # (Auto) 0.5 Eos # (Auto) 0.1 Baso # (Auto) 0.0 PT INR APTT Sodium Potassium Chloride Carbon Dioxide Anion Gap BUN Creatinine Est GFR ( Amer) Est GFR (Non-Af Amer) POC Glucose (mg/dL) 192 H 163 H Random Glucose Hemoglobin A1c Calcium Phosphorus Magnesium Total Bilirubin AST ALT Alkaline Phosphatase Troponin I Total Protein Albumin Globulin Albumin/Globulin Ratio Triglycerides Cholesterol LDL Cholesterol Direct HDL Cholesterol Urine Color Urine Clarity Urine pH Ur Specific [place] Urine Protein Urine Glucose (UA) Urine Ketones Urine Blood Urine Nitrate Urine Bilirubin Urine Urobilinogen Ur Leukocyte Esterase Urine RBC (Auto) Ur Squamous Epith Cells Blood Type Antibody Screen 08/23/17 08/23/17 08:00 11:20 WBC RBC Hgb Hct MCV MCH MCHC RDW Plt Count MPV Neut % (Auto) Lymph % (Auto) [place] % (Auto) Eos % (Auto) Baso % (Auto) Neut # (Auto) Lymph # (Auto) [place] # (Auto) Eos # (Auto) Baso # (Auto) PT INR APTT Sodium 142 Potassium 3.9 Chloride 99 Carbon Dioxide 30 Anion Gap 17 BUN 12 Creatinine 0.6 L Est GFR ( Amer) > 60 Est GFR (Non-Af Amer) > 60 POC Glucose (mg/dL) 152 H Random Glucose 152 H Hemoglobin A1c Calcium 9.2 Phosphorus 3.3 Magnesium 1.7 Total Bilirubin 0.5 AST 18 ALT 19 Alkaline Phosphatase 111 Troponin I Total Protein 7.6 Albumin 4.3 Globulin 3.3 Albumin/Globulin Ratio 1.3 Triglycerides Cholesterol LDL Cholesterol Direct HDL Cholesterol Urine Color Urine Clarity Urine pH Ur Specific [place] Urine Protein Urine Glucose (UA) Urine Ketones Urine Blood Urine Nitrate Urine Bilirubin Urine Urobilinogen Ur Leukocyte Esterase Urine RBC (Auto) Ur Squamous Epith Cells Blood Type Antibody Screen - Imaging and Cardiology CT scan - head Status: Image reviewed by me, Report reviewed by me (No acute findings. ) Assessment & Plan (1) Acute confusional state Assessment and Plan: Will obtain an EEG to rule out possible seizures. Otherwise, continue current medications. We may consider starting an AED depending on the results of the EEG. I recommend PT/OT eval and hydration. Management of underlying medical co -morbidities per the primary team. Thank you. Status: Acute Priority: High
--- NOTE | 2017-08-23 14:38 | CP.PCM.PN ---
<Brian Pathak - Last Filed: 08/23/17 14:35> Subjective - Date & Time of Evaluation Date of Evaluation: 08/23/17 Time of Evaluation: 08:30 - Subjective Subjective: PGY-[address] Rodriguez No acute events noted overnight. Patient today stated she is feeling much better. She said the dizziness she felt yesterday has resolved. She denied chest pain, abdominal pain, shortness of breath, nausea, vomiting, diarrhea, constipation, fever or chills. Objective - Vital Signs/Intake and Output Vital Signs (last 24 hours): Temp Pulse Resp BP Pulse Ox 98.8 F 75 20 166/85 H 97 08/23/17 08:25 08/23/17 11:29 08/23/17 08:25 08/23/17 08:25 08/23/17 08:25 Intake and Output: 08/23/17 08/23/17 06:59 18:59 Intake Total 10 400 Balance 10 400 - Medications Medications: Current Medications Amlodipine Besylate (Norvasc) 5 mg PO HS [facility] Last Admin: 08/22/17 22:26 Dose: 5 mg Clonidine HCl (Catapres) 0.1 mg PO DAILY [facility] Last Admin: 08/23/17 10:38 Dose: 0.1 mg Dextrose (Dextrose 50% Inj) 0 ml IV STAT PRN; Protocol PRN Reason: Hypoglycemia Protocol Dextrose (Glutose 15) 0 gm PO ONCE PRN; Protocol PRN Reason: Hypoglycemia Protocol Glipizide (Glucotrol) 5 mg PO DAILY [facility] Last Admin: 08/23/17 10:39 Dose: 5 mg Heparin Sodium (Porcine) (Heparin) 5,000 units SC Q8 [facility] Last Admin: 08/23/17 12:59 Dose: 5,000 units Insulin Human Regular (Novolin R) 0 unit SC ACHS [facility] PRN Reason: Protocol Last Admin: 08/23/17 12:59 Dose: 1 unit Polyethylene Glycol (Miralax) 17 gm PO HS [facility] Last Admin: 08/22/17 22:26 Dose: 17 gm Sitagliptin Phosphate (Januvia) 25 mg PO BID [facility] Last Admin: 08/23/17 10:38 Dose: 25 mg - Labs Labs: 08/23/17 08:00 08/23/17 08:00 PT 11.0 SECONDS (9.7-12.2) 08/22/17 16:45 INR 1.0 08/22/17 16:45 APTT 21 SECONDS (21-34) 08/22/17 16:45 - Constitutional Appears: Well, No Acute Distress - Head Exam Head Exam: ATRAUMATIC, NORMAL INSPECTION - Eye Exam Eye Exam: EOMI Pupil Exam: PERRL - ENT Exam ENT Exam: Mucous Membranes Moist - Neck Exam Neck Exam: Normal Inspection. absent: Lymphadenopathy, Tenderness - Respiratory Exam Respiratory Exam: Clear to Ausculation Bilateral, NORMAL BREATHING PATTERN. absent: Rales, Rhonchi, Wheezes - Cardiovascular Exam Cardiovascular Exam: REGULAR RHYTHM, +S1, +S2. absent: Bradycardia, Tachycardia , JVD, Murmur - GI/Abdominal Exam GI & Abdominal Exam: Soft, Normal Bowel Sounds. absent: Distended, Firm, Guarding, Rigid, Tenderness, Mass, Rebound - Rectal Exam Rectal Exam: absent: Deferred - Extremities Exam Extremities Exam: Normal Capillary Refill, Normal Inspection. absent: Calf Tenderness, Pedal Edema, Tenderness - Neurological Exam Neurological Exam: Alert, Awake, Oriented x3 Additional comments: NO facial asymmetry noted sensations intact motor function 5/5 in LE babinski normal Patient AAOx3 NO slurred speech - Psychiatric Exam Psychiatric exam: Normal Affect, Normal Mood - Skin Skin Exam: Intact, Normal Color, Warm Assessment and Plan - Assessment and Plan (Free Text) Assessment: 71 year old female with a PMHx of brain aneurysm who presented with AMS and slurred speech (per ) now resolved: Acute Confusional State Hx of ruptured brain aneurysm (s/p coiling and right frontal EVD), subdural hemorrhage, CVA no report of urinary/bowel incontinence or tongue biting no evidence of loss of consciousness Neuro, Dr Shukla/Dr Schuler, consulted - help appreciated (see consult note) * Prior brain lesions in an area that cause susceptibility to seizures * F/U EEG - to rule out possible seizures EKG-NSR at 60bmp F/U urine Cx Neurologist Dr. Aguirre was contacted - waiting for call back Patient had MRA last month at [facility] - PMD to fax over results Imaging: CTA head and neck: Extensive encephalomalacia changes right frontal lobe and to a lesser degree left inferior frontal pole. Chronic left and suspected smaller chronic right cerebellar infarct changes. Head CT w/o contrast: No intracranial mass, hemorrhage or evidence of acute infarct. Evidence of prior aneurysm repair. Multifocal encephalomalacia, unchanged. Chronic white matter ischemic change. Right frontal ventriculostomy catheter. Cxray: MANAGED CARE PROVIDER shunt catheter. Linear atelectasis, right midlung zone. Ectatic aorta. F/U EEG ordered (to rule out possible seizures) DMII HgbA1C 8.1 continue home medication: Glipizide 5mg po daily, Januvia 25mg po BID hold metformin due to iv contrast given ISS-low accuchecks ACHS Hypoglycemia protocol HTN continue home medications: Clonidine .1mg po daily Amlodipine 5mg po HS Start lisinopril 5mg PO QD Hyperlipidemia Cholesterol ELEVATED 225 LDL ELEVATED 142 Start Crestor 5mg PO QHS Chronic constipation continue home medication Miralax HS Prophylaxis Heparin 5000 u sc q8h, SCDs Diabetic Diet PT/OT eval and treat Dietitian referral for poor appetite <Sarina Rodriguez V - Last Filed: 08/23/17 22:46> Objective - Vital Signs/Intake and Output Vital Signs (last 24 hours): Temp Pulse Resp BP Pulse Ox 98.2 F 70 20 148/81 98 08/23/17 15:33 08/23/17 17:36 08/23/17 15:33 08/23/17 17:36 08/23/17 15:33 Intake and Output: 08/23/17 08/24/17 18:59 06:59 Intake Total 400 Balance 400 - Medications Medications: Current Medications Amlodipine Besylate (Norvasc) 5 mg PO HS [facility] Last Admin: 08/23/17 21:27 Dose: 5 mg Clonidine HCl (Catapres) 0.1 mg PO DAILY [facility] Last Admin: 08/23/17 10:38 Dose: 0.1 mg Dextrose (Dextrose 50% Inj) 0 ml IV STAT PRN; Protocol PRN Reason: Hypoglycemia Protocol Dextrose (Glutose 15) 0 gm PO ONCE PRN; Protocol PRN Reason: Hypoglycemia Protocol Glipizide (Glucotrol) 5 mg PO DAILY [facility] Last Admin: 08/23/17 10:39 Dose: 5 mg Heparin Sodium (Porcine) (Heparin) 5,000 units SC Q8 [facility] Last Admin: 08/23/17 21:27 Dose: 5,000 units Insulin Human Regular (Novolin R) 0 unit SC [facility] PRN Reason: Protocol Last Admin: 08/23/17 21:26 Dose: Not Given Lisinopril (Zestril) 5 mg PO DAILY [facility] Last Admin: 08/23/17 17:34 Dose: 5 mg Polyethylene Glycol (Miralax) 17 gm PO HS [facility] Last Admin: 08/23/17 21:27 Dose: 17 gm Rosuvastatin Calcium (Crestor) 5 mg PO HS [facility] Last Admin: 08/23/17 21:27 Dose: 5 mg Sitagliptin Phosphate (Januvia) 25 mg PO BID [facility] Last Admin: 08/23/17 17:34 Dose: 25 mg - Labs Labs: 08/23/17 08:00 08/23/17 08:00 PT 11.0 SECONDS (9.7-12.2) 08/22/17 16:45 INR 1.0 08/22/17 16:45 APTT 21 SECONDS (21-34) 08/22/17 16:45 Attending/Attestation - Attestation I have personally seen and examined this patient.: Yes I have fully participated in the care of the patient.: Yes I have reviewed all pertinent clinical information, including history, physical exam and plan: Yes Notes (Text): Patient seen, examined and case discussed with medical laboratory technician. Patient seen this morning, not present during exam, Patient very pleasant, recalled seeing my resident and medical student during their prerounds this morning. Patient cannot recall what happened yesterday. patient denies acute complaints. Patient has not been seen yet by other consultants at time of my exam. Discussed with neurology, recommended for Brain MRI and EEG. Per view of nursing notes, patient's reports patient has recently completed MRI, and will bring in report. Assessment/Plan 1) Encephalopathy Possible Seizure Hx of Brain Aneurysm s/p coiling and right frontal EVD Hx of CVA * Hx of ruptured brain aneurysm (s/p coiling and right frontal EVD), subdural hemorrhage, CVA * no report of urinary/bowel incontinence or tongue biting * no evidence of loss of consciousness * Neuro, Dr Shukla/Dr Schuler, consulted - help appreciated (see consult note) * Prior brain lesions in an area that cause susceptibility to seizures * F/U EEG - to rule out possible seizures * EKG-NSR at 60bmp * F/U urine Cx * Resident spoke with patient's pmd, patient has history of UTI infections * Patient's Neurologist Dr. Aguirre was contacted - waiting for call back * Resident spoke with PMD, patient had MRA last month at [facility] - PMD to fax over results * We will need to clarify if Brain MRI is needed with neurology if this is MRA of head/neck Imaging: * CTA head and neck: Extensive encephalomalacia changes right frontal lobe and to a lesser degree left inferior frontal pole. Chronic left and suspected smaller chronic right cerebellar infarct changes. * Head CT w/o contrast: No intracranial mass, hemorrhage or evidence of acute infarct. Evidence of prior aneurysm repair. Multifocal encephalomalacia, unchanged. Chronic white matter ischemic change. Right frontal ventriculostomy catheter. * Cxray: MANAGED CARE PROVIDER shunt catheter. Linear atelectasis, right midlung zone. Ectatic aorta. * F/U EEG ordered (to rule out possible seizures) * Seizure precautions * Medications: * Start Crestor 5mg POqHS * Blood pressure control-->added Lisinopril 5mg PO daily * Check with neurology team in regards to start aspirin in light of patient's stroke hx versus her ruptured brain aneurysm s/p coil/shunt * We will need to clarify with if this is MRA versus MRI brain report; prior order cancelled because brain mri was thought it was completed 2) DMII * HgbA1C 8.1 * continue home medication: Glipizide 5mg po daily, Januvia 25mg po BID * hold metformin due to iv contrast given * ISS-low * accuchecks ACHS * Hypoglycemia protocol 3) HTN * continue home medications: * Clonidine .1mg po daily * Amlodipine 5mg po HS * Start lisinopril 5mg PO QD * Monitor vital signs and titrate ranjan inhibitor 4) Hyperlipidemia * Cholesterol ELEVATED 225 * LDL ELEVATED 142 * Start Crestor 5mg PO QHS 5) Chronic constipation * continue home medication Miralax HS 6) Prophylaxis * Heparin 5000 u sc q8h, SCDs * Diabetic Diet * PT/OT eval and treat * Dietitian referral for poor appetite
[2017-08-23] MEDS: POLYETHYLENE GLYCOL 3350 17 GM/Dose PACKET PO SCH (21:27)
[2017-08-24 06:32] LABS: BASO # 0.1 K/uL (0.0-0.2); BASO % 0.6 % (0.0-2.0); EOS # 0.1 K/uL (0.0-0.7); EOS % 1.4 % (0.0-4.0); LYMPH # 3.9 K/uL (1.0-4.3); LYMPH % 43.8 % (20.0-40.0); MEAN CELL VOLUME 93.8 fL (81.0-99.0); MEAN CORPUSCULAR HEMOGLOBIN 32.4 pg (27.0-31.0); MEAN CORPUSCULAR HGB CONC 34.6 g/dL (33.0-37.0); MEAN PLATELET VOLUME 9.1 fL (7.2-11.7); MONO # 0.6 K/uL (0.0-0.8); MONO % 6.9 % (0.0-10.0); NEUT # 4.3 K/uL (1.8-7.0); NEUT % 47.3 % (50.0-75.0); NRBC % 0.1 % (0.0-2.0); RBC 4.33 Mil/uL (3.80-5.20); RED CELL DISTRIBUTION WIDTH 13.2 % (11.5-14.5)
[2017-08-24 06:52] LABS: ALB/GLOB RATIO 1.2 (1.0-2.1); ALBUMIN 4.2 g/dL (3.5-5.0); ALT/SGPT 23 U/L (9-52); AST/SGOT 19 U/L (14-36); BLOOD UREA NITROGEN 18 mg/dL (7-17); CALCIUM 9.2 mg/dl (8.6-10.4); GFR AFRICAN-AMERICAN > 60; GFR NON-AFRICAN AMERICAN > 60
[2017-08-24] MEDS: (Novolin R) Insulin Human Regular 100 units/ml vial SC SCH ×4 (08:00→21:28)
[2017-08-24 08:23] VITALS: RESP 20
[2017-08-24] MEDS: GlipiZIDE 2.5 mg Tab PO SCH (09:47)
--- NOTE | 2017-08-24 13:34 | CP.PCM.PN ---
<Brian Pathak R - Last Filed: 08/24/17 13:30> Subjective - Date & Time of Evaluation Date of Evaluation: 08/24/17 Time of Evaluation: 07:30 - Subjective Subjective: PGY-[address] Rodriguez No acute events noted overnight. 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 At that time patient did not remember who was president, where she was or the date. She denied chest pain, abdominal pain, shortness of breath, nausea, vomiting, diarrhea, constipation, fever or chills. Objective - Vital Signs/Intake and Output Vital Signs (last 24 hours): Temp Pulse Resp BP Pulse Ox 98 F 91 H 20 161/88 H 95 08/24/17 07:00 08/24/17 07:43 08/24/17 07:00 08/24/17 07:00 08/24/17 07:00 Intake and Output: 08/24/17 08/24/17 06:59 18:59 Intake Total 320 Balance 320 - Medications Medications: Current Medications Amlodipine Besylate (Norvasc) 5 mg PO HS [facility] Last Admin: 08/23/17 21:27 Dose: 5 mg Clonidine HCl (Catapres) 0.1 mg PO DAILY [facility] Last Admin: 08/24/17 09:45 Dose: 0.1 mg Dextrose (Dextrose 50% Inj) 0 ml IV STAT PRN; Protocol PRN Reason: Hypoglycemia Protocol Dextrose (Glutose 15) 0 gm PO ONCE PRN; Protocol PRN Reason: Hypoglycemia Protocol Glipizide (Glucotrol) 5 mg PO DAILY [facility] Last Admin: 08/24/17 09:47 Dose: 5 mg Heparin Sodium (Porcine) (Heparin) 5,000 units SC Q8 [facility] Last Admin: 08/24/17 06:06 Dose: 5,000 units Insulin Human Regular (Novolin R) 0 unit SC ACHS [facility] PRN Reason: Protocol Last Admin: 08/24/17 08:00 Dose: Not Given Lisinopril (Zestril) 5 mg PO BID [facility] Polyethylene Glycol (Miralax) 17 gm PO HS [facility] Last Admin: 08/23/17 21:27 Dose: 17 gm Rosuvastatin Calcium (Crestor) 5 mg PO HS [facility] Last Admin: 03/12/18 21:27 Dose: 5 mg Sitagliptin Phosphate (Januvia) 25 mg PO BID [facility] Last Admin: 08/24/17 09:45 Dose: 25 mg - Labs Labs: 08/24/17 06:14 08/24/17 06:14 PT 11.0 SECONDS (9.7-12.2) 08/22/17 16:45 INR 1.0 08/22/17 16:45 APTT 21 SECONDS (21-34) 08/22/17 16:45 - Additional Findings Additional findings: - Constitutional Appears: Well, No Acute Distress - Head Exam Head Exam: ATRAUMATIC, NORMAL INSPECTION - Eye Exam Eye Exam: EOMI Pupil Exam: PERRL - ENT Exam ENT Exam: Mucous Membranes Moist - Neck Exam Neck Exam: Normal Inspection. absent: Lymphadenopathy, Tenderness - Respiratory Exam Respiratory Exam: Clear to Ausculation Bilateral, NORMAL BREATHING PATTERN. absent: Rales, Rhonchi, Wheezes - Cardiovascular Exam Cardiovascular Exam: REGULAR RHYTHM, +S1, +S2. absent: Bradycardia, Tachycardia , JVD, Murmur - GI/Abdominal Exam GI & Abdominal Exam: Soft, Normal Bowel Sounds. absent: Distended, Firm, Guarding, Rigid, Tenderness, Mass, Rebound - Rectal Exam Rectal Exam: absent: Deferred - Extremities Exam Extremities Exam: Normal Capillary Refill, Normal Inspection. 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 Aguirre was contacted - waiting for call back * Resident spoke with PMD, patient had MRA last month at [facility] - PMD to fax over results * We will need to clarify if Brain MRI is needed with neurology if this is MRA of head/neck Imaging: * CTA head and neck: Extensive encephalomalacia changes right frontal lobe and to a lesser degree left inferior frontal pole. Chronic left and suspected smaller chronic right cerebellar infarct changes. * Head CT w/o contrast: No intracranial mass, hemorrhage or evidence of acute infarct. Evidence of prior aneurysm repair. Multifocal encephalomalacia, unchanged. Chronic white matter ischemic change. Right frontal ventriculostomy catheter. * Cxray: DIRECT MARKETING MANAGER shunt catheter. Linear atelectasis, right midlung zone. Ectatic aorta. * F/U EEG ordered (to rule out possible seizures) * Seizure precautions * Medications: * Start Crestor 5mg POqHS * Blood pressure control-->added Lisinopril 5mg PO daily * Check with neurology team in regards to start aspirin in light of patient's stroke hx versus her ruptured brain aneurysm s/p coil/shunt * We will need to clarify with if this is MRA versus MRI brain report; prior order cancelled because brain mri was thought it was completed 2) DMII * HgbA1C 8.1 * continue home medication: Glipizide 5mg po daily, Januvia 25mg po BID * hold metformin due to iv contrast given * ISS-low * accuchecks ACHS * Hypoglycemia protocol 3) HTN * continue home medications: * Clonidine .1mg po daily * Amlodipine 5mg po HS * Start lisinopril 5mg PO BID * Monitor vital signs and titrate ranjan inhibitor 4) Hyperlipidemia * Cholesterol ELEVATED 225 * LDL ELEVATED 142 * Start Crestor 5mg PO QHS 5) Chronic constipation * continue home medication Miralax HS 6) Prophylaxis * Heparin 5000 u sc q8h, SCDs * Diabetic Diet * PT/OT eval and treat * Dietitian referral for poor appetite DISPOSITION: Physical therapy has evaluated patient and recommends Acute Rehab upon discharge. <Sarina Rodriguez V - Last Filed: 08/24/17 15:52> Objective - Vital Signs/Intake and Output Vital Signs (last 24 hours): Temp Pulse Resp BP Pulse Ox 98 F 91 H 20 161/88 H 95 08/24/17 07:00 08/24/17 07:43 08/24/17 07:00 08/24/17 07:00 08/24/17 07:00 Intake and Output: 08/24/17 08/24/17 06:59 18:59 Intake Total 320 Balance 320 - Medications Medications: Current Medications Amlodipine Besylate (Norvasc) 5 mg PO HS [facility] Last Admin: 08/23/17 21:27 Dose: 5 mg Clonidine HCl (Catapres) 0.1 mg PO DAILY [facility] Last Admin: 08/24/17 09:45 Dose: 0.1 mg Dextrose (Dextrose 50% Inj) 0 ml IV STAT PRN; Protocol PRN Reason: Hypoglycemia Protocol Dextrose (Glutose 15) 0 gm PO ONCE PRN; Protocol PRN Reason: Hypoglycemia Protocol Heparin Sodium (Porcine) (Heparin) 5,000 units SC Q8 [facility] Last Admin: 08/24/17 14:38 Dose: 5,000 units Insulin Human Regular (Novolin R) 0 unit SC ACHS [facility] PRN Reason: Protocol Last Admin: 08/24/17 12:00 Dose: Not Given Lisinopril (Zestril) 5 mg PO BID [facility] Ondansetron HCl (Zofran Inj) 4 mg IVP DAILY@ONCE PRN PRN Reason: Nausea/Vomiting Polyethylene Glycol (Miralax) 17 gm PO HS [facility] Last Admin: 08/23/17 21:27 Dose: 17 gm Rosuvastatin Calcium (Crestor) 5 mg PO HS [facility] Last Admin: 08/23/17 21:27 Dose: 5 mg Sitagliptin Phosphate (Januvia) 25 mg PO BID [facility] Last Admin: 08/24/17 09:45 Dose: 25 mg - Labs Labs: 08/24/17 06:14 08/24/17 06:14 PT 11.0 SECONDS (9.7-12.2) 08/22/17 16:45 INR 1.0 08/22/17 16:45 APTT 21 SECONDS (21-34) 08/22/17 16:45 Attending/Attestation - Attestation I have personally seen and examined this patient.: Yes I have fully participated in the care of the patient.: Yes I have reviewed all pertinent clinical information, including history, physical exam and plan: Yes Notes (Text): Patient seen, examined, case discussed with medical scheduler. Patient seen during rounds. Patient appears drowsy, cannot remember the name of the president, the correct hospital, and she reports that she is in [place]. She is able to remember our faces but does not appear as alert compared to yesterday. Discussed with patient's nurse this morning, patient has been quite drowsy this morning and did not eat her breakfast until 10 AM. Outer plate of bedside appears in majority in [place] toast. Later this afternoon is noted patient still appeared drowsy and threw up. A copy of patient's MRI angiography was made available to us by patient's primary care doctor. Resident has attempted to call patient's but has not returned call nor visited at this time. Discussed with neurology given patient's drowsiness, will repeat head CT as a stat and may require a brain MRI. Neurology has reviewed EEG which appeared normal. We will hold patient's glipizide and Januvia to prevent hypoglycemic episodes and continue to monitor sugars. 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 Aguirre was contacted - waiting for call back * Resident spoke with PMD, patient had MRA last month at [facility] - PMD to fax over results * We will need to clarify if Brain MRI is needed with neurology if this is MRA of head/neck Imaging: * CTA head and neck: Extensive encephalomalacia changes right frontal lobe and to a lesser degree left inferior frontal pole. Chronic left and suspected smaller chronic right cerebellar infarct changes. * Head CT w/o contrast: No intracranial mass, hemorrhage or evidence of acute infarct. Evidence of prior aneurysm repair. Multifocal encephalomalacia, unchanged. Chronic white matter ischemic change. Right frontal ventriculostomy catheter. * Will repeat CT Head today as stat and may require Brain MRI * Cxray: DIRECT MARKETING MANAGER shunt catheter. Linear atelectasis, right midlung zone. Ectatic aorta. * F/U EEG ordered (to rule out possible seizures) official report * Seizure precautions * Medications: * Start Crestor 5mg POqHS * Blood pressure control-->added Lisinopril 5mg PO daily and increased to BID * Check with neurology team in regards to start aspirin in light of patient's stroke hx versus her ruptured brain aneurysm s/p coil/shunt 2) DMII * HgbA1C 8.1 * held home medication: Glipizide 5mg po daily, Januvia 25mg po BID given patient appears drowsy and threw up her meal * hold metformin due to iv contrast given * ISS-low * accuchecks ACHS * Hypoglycemia protocol 3) HTN * continue home medications: * Clonidine .1mg po daily * Amlodipine 5mg po HS * Increase lisinopril 5mg PO BID * Monitor vital signs and titrate ranjan inhibitor 4) Hyperlipidemia * Cholesterol ELEVATED 225 * LDL ELEVATED 142 * Start Crestor 5mg PO QHS 5) Chronic constipation * continue home medication Miralax HS 6) Prophylaxis * Heparin 5000 u sc q8h, SCDs * Diabetic Diet * PT/OT eval and treat: recommended for acute rehab * Dietitian referral for poor appetite DISPOSITION: Pending repeat Head Ct and possible may need Brain MRI. PT/OT have recommended for subacute rehab for the patient.
--- NOTE | 2017-08-24 16:38 | CT ---
PROCEDURE: CT HEAD WITHOUT CONTRAST. HISTORY: change in mental status COMPARISON: 08/22/2017 TECHNIQUE: Axial computed tomography images were obtained through the head/brain without intravenous contrast. Radiation dose: Total exam DLP = 1068.52 mGy-cm. This CT exam was performed using one or more of the following dose reduction techniques: Automated exposure control, adjustment of the mA and/or kV according to patient size, and/or use of iterative reconstruction technique. FINDINGS: HEMORRHAGE: No intracranial hemorrhage. BRAIN: No intracranial mass. Inferior right frontal encephalomalacia. High right frontal encephalomalacia. Old left cerebellar hemispheric infarct. Status post aneurysm repair with clip or coital in midline anterior cranial fossa. Moderate patchy and confluent periventricular/deep white matter lucency consistent with microvascular ischemic change. No evidence of acute infarct. Very small old bilateral basal ganglia lacunar infarcts. VENTRICLES: No hydrocephalus. Right frontal ventriculostomy catheter. CALVARIUM: Left frontal calvarial fracisco hole. PARANASAL SINUSES: Unremarkable as visualized. No significant inflammatory changes. MASTOID AIR CELLS: Unremarkable as visualized. No inflammatory changes. OTHER FINDINGS: None. IMPRESSION: No evidence of acute infarct. Multifocal encephalomalacia and old left cerebellar hemispheric infarct. Chronic white matter ischemic change. Right frontal ventriculostomy catheter. Status post aneurysm repair.
[2017-08-24] MEDS: POLYETHYLENE GLYCOL 3350 17 GM/Dose PACKET PO SCH (21:33)
--- NOTE | 2017-08-25 07:37 | CP.PCM.PN ---
Subjective - Date & Time of Evaluation Date of Evaluation: 08/25/17 Time of Evaluation: 07:34 - Subjective Subjective: Ms. Renteria was seen and examined at the bedside. She is alert, able to state person ( Trump), her name and birthday, but confused to place ( [facility]), time ( 1941). She is able to answer questions and follow commands. She denies any headache, dizziness, lightheadedness, nausea, or vomiting. She claims of feeling hungry when she woke up this morning. She is able to feed herself with no assistance. She had a change of mental status yesterday and CT scan of the head was done which showed no evidence of acute infarct. Multifocal encephalomalacia and old left cerebellar hemispheric infarct. Chronic white matter ischemic change. Right frontal ventriculostomy catheter. S/p aneurysm repair. Objective - Vital Signs/Intake and Output Vital Signs (last 24 hours): Temp Pulse Resp BP Pulse Ox 98.1 F 95 H 20 170/98 H 97 08/25/17 04:10 08/25/17 04:10 08/25/17 04:10 08/25/17 04:10 08/25/17 04:10 - Medications Medications: Current Medications Amlodipine Besylate (Norvasc) 5 mg PO HS [facility] Last Admin: 08/24/17 21:33 Dose: 5 mg Clonidine HCl (Catapres) 0.1 mg PO DAILY [facility] Last Admin: 08/24/17 09:45 Dose: 0.1 mg Dextrose (Dextrose 50% Inj) 0 ml IV STAT PRN; Protocol PRN Reason: Hypoglycemia Protocol Dextrose (Glutose 15) 0 gm PO ONCE PRN; Protocol PRN Reason: Hypoglycemia Protocol Enoxaparin Sodium (Lovenox) 40 mg SC DAILY [facility] Insulin Human Regular (Novolin R) 0 unit SC ACHS [facility] PRN Reason: Protocol Last Admin: 08/24/17 21:28 Dose: Not Given Lisinopril (Zestril) 5 mg PO BID [facility] Last Admin: 08/24/17 18:45 Dose: 5 mg Ondansetron HCl (Zofran Inj) 4 mg IVP DAILY@ONCE PRN PRN Reason: Nausea/Vomiting Polyethylene Glycol (Miralax) 17 gm PO HS [facility] Last Admin: 08/24/17 21:33 Dose: 17 gm Quetiapine Fumarate (Seroquel) 25 mg PO ONCE PRN PRN Reason: Anxiety Rosuvastatin Calcium (Crestor) 5 mg PO HS [facility] Last Admin: 08/24/17 21:33 Dose: 5 mg Sitagliptin Phosphate (Januvia) 25 mg PO BID [facility] Last Admin: 08/24/17 09:45 Dose: 25 mg - Labs Labs: 08/24/17 06:14 08/24/17 06:14 PT 11.0 SECONDS (9.7-12.2) 08/22/17 16:45 INR 1.0 08/22/17 16:45 APTT 21 SECONDS (21-34) 08/22/17 16:45 - Constitutional Appears: No Acute Distress - Head Exam Head Exam: NORMAL INSPECTION - Neurological Exam Neurological Exam: Alert, Awake Neuro motor strength exam: Left Upper Extremity: 5, Right Upper Extremity: 5, Left Lower Extremity: 5, Right Lower Extremity: 5 Additional comments: She is AOx3, follow commands. Assessment and Plan (1) Seizure Assessment & Plan: Case discussed with Dr. Schuler, continue all current medical therapy. Recommend MRI of the brain with seroquel 25 mg PO prior to MRI. Pending EEG results. Status: Acute
[2017-08-25] MEDS: (Novolin R) Insulin Human Regular 100 units/ml vial SC SCH ×4 (08:29→21:23)
[2017-08-25 08:51] LABS: BASO # 0.1 K/uL (0.0-0.2); EOS # 0.1 K/uL (0.0-0.7); HEMOGLOBIN 14.5 g/dL (11.0-16.0); LYMPH # 3.7 K/uL (1.0-4.3); LYMPH % 43.4 % (20.0-40.0); MEAN CELL VOLUME 94.9 fL (81.0-99.0); MEAN CORPUSCULAR HEMOGLOBIN 32.2 pg (27.0-31.0); MEAN CORPUSCULAR HGB CONC 33.9 g/dL (33.0-37.0); MEAN PLATELET VOLUME 9.2 fL (7.2-11.7); MONO # 0.5 K/uL (0.0-0.8); MONO % 5.8 % (0.0-10.0); NEUT # 4.1 K/uL (1.8-7.0); NEUT % 48.8 % (50.0-75.0); NRBC % 0.1 % (0.0-2.0); RBC 4.5 Mil/uL (3.80-5.20); RED CELL DISTRIBUTION WIDTH 12.9 % (11.5-14.5); WHITE BLOOD COUNT 8.4 K/uL (4.8-10.8)
[2017-08-25 09:04] LABS: ALB/GLOB RATIO 1.1 (1.0-2.1); ALBUMIN 4.5 g/dL (3.5-5.0); ALT/SGPT 16 U/L (9-52); AST/SGOT 21 U/L (14-36); BLOOD UREA NITROGEN 14 mg/dL (7-17); CALCIUM 9.5 mg/dl (8.6-10.4); GFR AFRICAN-AMERICAN > 60; GFR NON-AFRICAN AMERICAN > 60
[2017-08-25] MEDS: Enoxaparin 40 mg Syringe SC SCH (10:55)
--- NOTE | 2017-08-25 12:18 | CP.PCM.PN ---
<Brian Pathak - Last Filed: 08/25/17 12:19> Subjective - Date & Time of Evaluation Date of Evaluation: 08/25/17 Time of Evaluation: 09:15 - Subjective Subjective: PGY-[address] Rodriguez. No acute events noted overnight. Today Mrs Renteria mental status was much improved from yesterday. She quickly remembered who I was and was able to recall her name, know that Rodney is president, but thought she was in [place]. Neurology also saw her today and also noted her improved mental status. She walked to the bathroom earlier with assistance. She denied chest pain, nausea, vomiting, diarrhea, fever, chills. Objective - Vital Signs/Intake and Output Vital Signs (last 24 hours): Temp Pulse Resp BP Pulse Ox 97.9 F 105 H 20 176/90 H 96 08/25/17 07:00 08/25/17 07:40 08/25/17 07:00 08/25/17 07:00 08/25/17 07:00 - Medications Medications: Current Medications Amlodipine Besylate (Norvasc) 10 mg PO DAILY [facility] Clonidine HCl (Catapres) 0.1 mg PO DAILY [facility] Last Admin: 08/25/17 10:55 Dose: 0.1 mg Dextrose (Dextrose 50% Inj) 0 ml IV STAT PRN; Protocol PRN Reason: Hypoglycemia Protocol Dextrose (Glutose 15) 0 gm PO ONCE PRN; Protocol PRN Reason: Hypoglycemia Protocol Enoxaparin Sodium (Lovenox) 40 mg SC DAILY [facility] Last Admin: 08/25/17 10:55 Dose: 40 mg Insulin Human Regular (Novolin R) 0 unit SC [facility] PRN Reason: Protocol Last Admin: 08/25/17 08:29 Dose: 1 unit Ondansetron HCl (Zofran Inj) 4 mg IVP DAILY@ONCE PRN PRN Reason: Nausea/Vomiting Polyethylene Glycol (Miralax) 17 gm PO HS [facility] Last Admin: 08/24/17 21:33 Dose: 17 gm Quetiapine Fumarate (Seroquel) 25 mg PO ONCE PRN PRN Reason: Anxiety Rosuvastatin Calcium (Crestor) 5 mg PO HS [facility] Last Admin: 08/24/17 21:33 Dose: 5 mg Sitagliptin Phosphate (Januvia) 25 mg PO BID [facility] Last Admin: 08/24/17 09:45 Dose: 25 mg - Labs Labs: 08/25/17 08:39 08/25/17 08:39 PT 11.0 SECONDS (9.7-12.2) 08/22/17 16:45 INR 1.0 08/22/17 16:45 APTT 21 SECONDS (21-34) 08/22/17 16:45 - Additional Findings Additional findings: - Constitutional Appears: Well, No Acute Distress - Head Exam Head Exam: ATRAUMATIC, NORMAL INSPECTION - Eye Exam Eye Exam: EOMI Pupil Exam: PERRL - ENT Exam ENT Exam: Mucous Membranes Moist - Neck Exam Neck Exam: Normal Inspection. absent: Lymphadenopathy, Tenderness - Respiratory Exam Respiratory Exam: Clear to Ausculation Bilateral, NORMAL BREATHING PATTERN. absent: Rales, Rhonchi, Wheezes - Cardiovascular Exam Cardiovascular Exam: REGULAR RHYTHM, +S1, +S2. absent: Bradycardia, Tachycardia , JVD, Murmur - GI/Abdominal Exam GI & Abdominal Exam: Soft, Normal Bowel Sounds. absent: Distended, Firm, Guarding, Rigid, Tenderness, Mass, Rebound - Rectal Exam Rectal Exam: absent: Deferred - Extremities Exam Extremities Exam: Normal Capillary Refill, Normal Inspection. absent: Calf Tenderness, Pedal Edema, Tenderness - Neurological Exam Neurological Exam: Alert, Awake, Oriented x3 Additional comments: NO facial asymmetry noted sensations intact motor function 5/5 in LE babinski normal Patient AAOx3 NO slurred speech - Psychiatric Exam Psychiatric exam: Normal Affect, Normal Mood - Skin Skin Exam: Intact, Normal Color, Warm Assessment and Plan - Assessment and Plan (Free Text) Assessment: Patient is a Zoroastrian 71 year old female who presented with increased confusional state: 1) Encephalopathy Possible Seizure Hx of Brain Aneurysm s/p coiling and right frontal EVD Hx of CVA * 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 Aguirre was contacted - waiting for call back * Resident spoke with PMD, patient had MRA last month at [facility] - PMD to fax over results * We will need to clarify if Brain MRI is needed with neurology if this is MRA of head/neck Imaging: * CTA head and neck: Extensive encephalomalacia changes right frontal lobe and to a lesser degree left inferior frontal pole. Chronic left and suspected smaller chronic right cerebellar infarct changes. * Head CT w/o contrast: No intracranial mass, hemorrhage or evidence of acute infarct. Evidence of prior aneurysm repair. Multifocal encephalomalacia, unchanged. Chronic white matter ischemic change. Right frontal ventriculostomy catheter. * Will repeat CT Head today as stat and may require Brain MRI * Cxray: [employer] shunt catheter. Linear atelectasis, right midlung zone. Ectatic aorta. * F/U EEG (to rule out possible seizures) official report (normal per Dr Schuler) * Repeat Head CT w/o contrast (due to AMS on 08/24/17): No evidence of acute infarct. Multifocal encephalomalacia and old left cerebellar hemispheric infarct. Chronic white matter ischemic change. Right frontal ventriculostomy catheter. Status post aneurysm repair. * F/U Brain MRI w/o contrast: * Seizure precautions * Medications: * Start Crestor 5mg POqHS * Blood pressure control-->added Lisinopril 5mg PO daily and increased to BID * Check with neurology team in regards to start aspirin in light of patient's stroke hx versus her ruptured brain aneurysm s/p coil/shunt 2) DMII * HgbA1C 8.1 * held home medication: Glipizide 5mg po daily, given patient appeared drowsy and threw up her meal yesterday 08/24 * continue home medication: Januvia 25mg po BID * hold metformin due to iv contrast given * ISS-low * accuchecks ACHS * Hypoglycemia protocol 3) HTN * Elevated BP - discontinued her home clonidine 0.1mg (causes solmnolence, drowsiness). Also increased her Norvasc from 5 to 10mg. And will add new agent Lisinopril 10mg qHS (added benefit of renal protection) * DISCONTINUED Clonidine .1mg po daily * Amlodipine 10mg po QD * Start lisinopril 10mg PO qHS * Monitor vital signs 4) Hyperlipidemia * Was not on a statin * Cholesterol ELEVATED 225 * LDL ELEVATED 142 * Start Crestor 5mg PO QHS 5) Chronic constipation * continue home medication Miralax HS 6) Prophylaxis * Heparin 5000 u sc q8h, SCDs * Diabetic Diet * PT/OT eval and treat: recommended for acute rehab * Dietitian referral for poor appetite DISPOSITION: PT/OT have recommended for acute rehab for the patient however patient prefers to go home. Her , Floyd was attempted for contact at to ascertain his preference (home vs acute rehab) however he did not pickling operator - a message was left. <Sarina Rodriguez V - Last Filed: 08/25/17 17:57> Objective - Vital Signs/Intake and Output Vital Signs (last 24 hours): Temp Pulse Resp BP Pulse Ox 98.4 F 103 H 20 148/90 96 08/25/17 15:28 08/25/17 16:00 08/25/17 15:28 08/25/17 15:28 08/25/17 15:28 Intake and Output: 08/25/17 08/25/17 06:59 18:59 Output Total 3 Balance -3 - Medications Medications: Current Medications Amlodipine Besylate (Norvasc) 10 mg PO DAILY [facility] Dextrose (Dextrose 50% Inj) 0 ml IV STAT PRN; Protocol PRN Reason: Hypoglycemia Protocol Dextrose (Glutose 15) 0 gm PO ONCE PRN; Protocol PRN Reason: Hypoglycemia Protocol Enoxaparin Sodium (Lovenox) 40 mg SC DAILY [facility] Last Admin: 08/25/17 10:55 Dose: 40 mg Insulin Human Regular (Novolin R) 0 unit SC [facility] PRN Reason: Protocol Last Admin: 08/25/17 12:30 Dose: 3 unit Lisinopril (Zestril) 10 mg PO 2200 [facility] Lisinopril (Zestril) 5 mg PO ONCE ONE Stop: 08/25/17 22:01 Metformin HCl (Glucophage) 500 mg PO BID [facility] Ondansetron HCl (Zofran Inj) 4 mg IVP DAILY@ONCE PRN PRN Reason: Nausea/Vomiting Polyethylene Glycol (Miralax) 17 gm PO HS [facility] Last Admin: 08/24/17 21:33 Dose: 17 gm Quetiapine Fumarate (Seroquel) 25 mg PO ONCE PRN PRN Reason: Anxiety Rosuvastatin Calcium (Crestor) 5 mg PO HS [facility] Last Admin: 08/24/17 21:33 Dose: 5 mg Sitagliptin Phosphate (Januvia) 25 mg PO BID [facility] Last Admin: 08/24/17 09:45 Dose: 25 mg - Labs Labs: 08/25/17 08:39 08/25/17 08:39 PT 11.0 SECONDS (9.7-12.2) 08/22/17 16:45 INR 1.0 08/22/17 16:45 APTT 21 SECONDS (21-34) 08/22/17 16:45 Attending/Attestation - Attestation I have personally seen and examined this patient.: Yes I have fully participated in the care of the patient.: Yes I have reviewed all pertinent clinical information, including history, physical exam and plan: Yes Notes (Text): Patient seen, examined, case discussed with medical records clerk. Patient seen during rounds. Patient sitting up right in chair. Patient reports she feels hungry. Patient appears more awake and alert. Per slps, unable to perform Brain MRI given history of coil in-spite of copy of head and neck MRA from [facility] in May 2017. Resident coordinated with PMD confirmed annual MRI, case discussed with neurology on case , no Brain MRI at this time since patient has improved. Resident has also spoken wit who refuses Brain MRI and per patient is back at baseline. Patient's blood pressure is uncontrolled; increase norvasc 10mg PO daily and increase Lisinopril 5mg PO BID to control blood pressure. and patient would like patient go home upon discharge. Will plan for discharge planning tomorrow. Patient restarted on her Januvia and her metformin. 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 Aguirre was contacted - waiting for call back * Resident spoke with PMD, patient had MRA last month at [facility] - PMD to fax over results which is in the chart 05/2017 Imaging: * CTA head and neck: Extensive encephalomalacia changes right frontal lobe and to a lesser degree left inferior frontal pole. Chronic left and suspected smaller chronic right cerebellar infarct changes. * Head CT w/o contrast: No intracranial mass, hemorrhage or evidence of acute infarct. Evidence of prior aneurysm repair. Multifocal encephalomalacia, unchanged. Chronic white matter ischemic change. Right frontal ventriculostomy catheter. * Will repeat CT Head today as stat and may require Brain MRI * Cxray: [employer] shunt catheter. Linear atelectasis, right midlung zone. Ectatic aorta. * F/U EEG ordered (to rule out possible seizures) official report * Seizure precautions * Medications: * Start Crestor 5mg POqHS * Blood pressure control--> increase Lisinopril 10mg PO daily and increase norvasc 10mg PO daily 2) DMII * HgbA1C 8.1 * held home medication: Glipizide 5mg po daily * Restart Januvia 25mg po BID and metformin 500mg PO BID * ISS-low * accuchecks ACHS * Hypoglycemia protocol 3) HTN * continue home medications: * Clonidine .1mg po daily * Amlodipine 10mg po HS 4) Hyperlipidemia * Cholesterol ELEVATED 225 * LDL ELEVATED 142 * Start Crestor 5mg PO QHS 5) Chronic constipation * continue home medication Miralax HS 6) Prophylaxis * Heparin 5000 u sc q8h, SCDs * Diabetic Diet * PT/OT eval and treat: recommended for acute rehab * Dietitian referral for poor appetite DISPOSITION: Plan for discharge planning tomorrow.
[2017-08-25 12:23] LABS: URINE BILIRUBIN NEGATIVE (NEGATIVE); URINE BLOOD NEGATIVE (NEGATIVE); URINE CLARITY Clear (Clear); URINE COLOR Straw (YELLOW); URINE GLUCOSE (UA) 3+ mg/dL (Normal); URINE LEUKOCYTE ESTERASE NEG Leu/uL (Negative); URINE PROTEIN NEGATIVE (NEGATIVE)
[2017-08-25] MEDS: POLYETHYLENE GLYCOL 3350 17 GM/Dose PACKET PO SCH (21:23)
[2017-08-26 06:24] LABS: BASO # 0.1 K/uL (0.0-0.2); BASO % 0.7 % (0.0-2.0); EOS # 0.1 K/uL (0.0-0.7); EOS % 1.3 % (0.0-4.0); HEMOGLOBIN 14.1 g/dL (11.0-16.0); LYMPH % 45.6 % (20.0-40.0); MEAN CORPUSCULAR HEMOGLOBIN 32.1 pg (27.0-31.0); MEAN CORPUSCULAR HGB CONC 33.8 g/dL (33.0-37.0); MEAN PLATELET VOLUME 9.2 fL (7.2-11.7); MONO # 0.6 K/uL (0.0-0.8); MONO % 6.9 % (0.0-10.0); NEUT % 45.5 % (50.0-75.0); NRBC % 0.1 % (0.0-2.0); RBC 4.41 Mil/uL (3.80-5.20); RED CELL DISTRIBUTION WIDTH 13.1 % (11.5-14.5); WHITE BLOOD COUNT 8.8 K/uL (4.8-10.8)
[2017-08-26 06:46] LABS: ALB/GLOB RATIO 1.2 (1.0-2.1); ALBUMIN 4.2 g/dL (3.5-5.0); ALT/SGPT 27 U/L (9-52); AST/SGOT 28 U/L (14-36); BLOOD UREA NITROGEN 16 mg/dL (7-17); CALCIUM 9.2 mg/dl (8.6-10.4); GFR AFRICAN-AMERICAN > 60; GFR NON-AFRICAN AMERICAN > 60
--- NOTE | 2017-08-26 07:32 | CP.PCM.PN ---
Subjective - Date & Time of Evaluation Date of Evaluation: 08/26/17 Time of Evaluation: 07:31 - Subjective Subjective: Ms. Renteria was seen and examined at the bedside. She is very drowsy, opens her eyes with tactile stimuli. She is non verbal today, but shakes or nods her eyes in response to questions. ROS is unable to do due to her current mental status. According to staff, she had episode of confusion yesterday and pulls her IV heplock and elevated blood pressure. Objective - Vital Signs/Intake and Output Vital Signs (last 24 hours): Temp Pulse Resp BP Pulse Ox 97.4 F L 98 H 20 168/91 H 95 08/26/17 04:38 08/26/17 04:38 08/26/17 04:38 08/26/17 04:38 08/26/17 04:38 Intake and Output: 08/26/17 08/26/17 06:59 18:59 Intake Total 240 Balance 240 - Medications Medications: Current Medications Amlodipine Besylate (Norvasc) 10 mg PO DAILY [facility] Dextrose (Dextrose 50% Inj) 0 ml IV STAT PRN; Protocol PRN Reason: Hypoglycemia Protocol Dextrose (Glutose 15) 0 gm PO ONCE PRN; Protocol PRN Reason: Hypoglycemia Protocol Enoxaparin Sodium (Lovenox) 40 mg SC DAILY [facility] Last Admin: 08/25/17 10:55 Dose: 40 mg Insulin Human Regular (Novolin R) 0 unit SC [facility] PRN Reason: Protocol Last Admin: 08/25/17 21:23 Dose: Not Given Lisinopril (Zestril) 10 mg PO 2200 [facility] Metformin HCl (Glucophage) 500 mg PO BID [facility] Last Admin: 08/25/17 17:48 Dose: 500 mg Ondansetron HCl (Zofran Inj) 4 mg IVP DAILY@ONCE PRN PRN Reason: Nausea/Vomiting Polyethylene Glycol (Miralax) 17 gm PO HS [facility] Last Admin: 08/25/17 21:23 Dose: 17 gm Quetiapine Fumarate (Seroquel) 25 mg PO ONCE PRN PRN Reason: Anxiety Rosuvastatin Calcium (Crestor) 5 mg PO HS [facility] Last Admin: 08/25/17 21:22 Dose: 5 mg Sitagliptin Phosphate (Januvia) 25 mg PO BID [facility] Last Admin: 08/25/17 17:49 Dose: 25 mg - Labs Labs: 03/15/18 06:14 08/26/17 06:14 PT 11.0 SECONDS (9.7-12.2) 08/22/17 16:45 INR 1.0 08/22/17 16:45 APTT 21 SECONDS (21-34) 08/22/17 16:45 - Constitutional Appears: No Acute Distress - Head Exam Head Exam: NORMAL INSPECTION - Neurological Exam Neuro motor strength exam: Left Upper Extremity: 3, Right Upper Extremity: 3, Left Lower Extremity: 3, Right Lower Extremity: 3 Additional comments: She is drowsy and unable to do ROS. Sensation remains intact. Assessment and Plan (1) Seizure Assessment & Plan: Case discussed with Dr. Shukla, continue all current medical regimen. Recommend MRI of the brain and repaet CT scan of the brain without contrast to evaluate her current mental status. Status: Acute
[2017-08-26] MEDS: (Novolin R) Insulin Human Regular 100 units/ml vial SC SCH ×2 (08:30→12:15)
[2017-08-26] MEDS: Enoxaparin 40 mg Syringe SC SCH (09:51)
[2017-08-26 11:51] VITALS: O2SAT 96
--- NOTE | 2017-08-26 14:37 | CT ---
PROCEDURE: CT HEAD WITHOUT CONTRAST. HISTORY: change of mental status COMPARISON: 08/22/2017, 08/24/[address] scans of the head TECHNIQUE: Axial computed tomography images were obtained through the head/brain without intravenous contrast. Coronal and sagittal reconstructed images. Radiation dose: Total exam DLP = 791.52 mGy-cm. This CT exam was performed using one or more of the following dose reduction techniques: Automated exposure control, adjustment of the mA and/or kV according to patient size, and/or use of iterative reconstruction technique. FINDINGS: HEMORRHAGE: No intracranial hemorrhage. BRAIN: No mass effect or edema. Encephalomalacia change/periventricular microvascular disease. Evidence of prior surgical repair of cerebral aneurysm. Focal encephalomalacia change right frontal lobe. Multiple basal ganglia infarcts/old lacune VENTRICLES: Stable position of [employer]IC[employer] shunt catheter. CALVARIUM: Unremarkable. PARANASAL SINUSES: Unremarkable as visualized. No significant inflammatory changes. MASTOID AIR CELLS: Unremarkable as visualized. No inflammatory changes. OTHER FINDINGS: None. IMPRESSION: No acute intracranial abnormalities. No significant findings to account for the clinical presentation. Additional benign and/or incidental findings described above. No significant interval change compared to the prior examination(s).
--- NOTE | 2017-08-26 15:30 | CP.PCM.DIS ---
<Brian Pathak - Last Filed: 08/26/17 15:26> Provider - Provider Date of Admission: 08/22/17 19:00 Attending physician: Sarina Rodriguez DO Primary care physician: Dr. Ness - [phone] Consults: Neurology - Dr Schuler Time Spent in preparation of Discharge (in minutes): 42 Hospital Course - Lab Results Lab Results: Micro Results 08/25/17 10:45 Blood Blood Culture - Preliminary NO GROWTH AFTER 24 HOURS 08/25/17 08:39 Blood Blood Culture - Preliminary NO GROWTH AFTER 24 HOURS 08/22/17 18:30 Urine Urine Culture - Final 10-50,000 CFU/ML. MULTIPLE SPECIES. PROBABLE CONTAMINATION. Most Recent Lab Values WBC 8.8 K/uL (4.8-10.8) 08/26/17 06:14 RBC 4.41 Mil/uL (3.80-5.20) 08/26/17 06:14 Hgb 14.1 g/dL (11.0-16.0) 08/26/17 06:14 Hct 41.9 % (34.0-47.0) 08/26/17 06:14 MCV 95.0 fL (81.0-99.0) 08/26/17 06:14 MCH 32.1 pg (27.0-31.0) H 08/26/17 06:14 MCHC 33.8 g/dL (33.0-37.0) 08/26/17 06:14 RDW 13.1 % (11.5-14.5) 08/26/17 06:14 Plt Count 295 K/uL (130-400) 08/26/17 06:14 MPV 9.2 fL (7.2-11.7) 08/26/17 06:14 Neut % (Auto) 45.5 % (50.0-75.0) L 08/26/17 06:14 Lymph % (Auto) 45.6 % (20.0-40.0) H 08/26/17 06:14 Mckenzie % (Auto) 6.9 % (0.0-10.0) 08/26/17 06:14 Eos % (Auto) 1.3 % (0.0-4.0) 08/26/17 06:14 Baso % (Auto) 0.7 % (0.0-2.0) 08/26/17 06:14 Neut # (Auto) 4.0 K/uL (1.8-7.0) 08/26/17 06:14 Lymph # (Auto) 4.0 K/uL (1.0-4.3) 08/26/17 06:14 Mckenzie # (Auto) 0.6 K/uL (0.0-0.8) 08/26/17 06:14 Eos # (Auto) 0.1 K/uL (0.0-0.7) 08/26/17 06:14 Baso # (Auto) 0.1 K/uL (0.0-0.2) 08/26/17 06:14 PT 11.0 SECONDS (9.7-12.2) 08/22/17 16:45 INR 1.0 08/22/17 16:45 APTT 21 SECONDS (21-34) 08/22/17 16:45 Sodium 142 mmol/L (132-148) 08/26/17 06:14 Potassium 3.9 mmol/L (3.6-5.2) 08/26/17 06:14 Chloride 101 mmol/L (98-107) 08/26/17 06:14 Carbon Dioxide 24 mmol/L (22-30) 08/26/17 06:14 Anion Gap 21 (10-20) H 08/26/17 06:14 BUN 16 mg/dL (7-17) 08/26/17 06:14 Creatinine 0.5 mg/dL (0.7-1.2) L 08/26/17 06:14 Est GFR ( Amer) > 60 08/26/17 06:14 Est GFR (Non-Af Amer) > 60 08/26/17 06:14 POC Glucose (mg/dL) 166 mg/dL (65-110) H 08/26/17 11:51 Random Glucose 145 mg/dL (65-105) H 08/26/17 06:14 Hemoglobin A1c 8.1 % (4.2-6.5) H 08/22/17 16:45 Calcium 9.2 mg/dl (8.6-10.4) 08/26/17 06:14 Phosphorus 4.0 mg/dL (2.5-4.5) 08/26/17 06:14 Magnesium 2.0 mg/dL (1.6-2.3) 08/26/17 06:14 Total Bilirubin 0.4 mg/dL (0.2-1.3) 08/26/17 06:14 AST 28 U/L (14-36) 08/26/17 06:14 ALT 27 U/L (9-52) 08/26/17 06:14 Alkaline Phosphatase 111 U/L (38-126) 08/26/17 06:14 Troponin I < 0.0120 ng/mL (0.00-0.120) 08/22/17 16:45 Total Protein 7.8 g/dL (6.3-8.3) 08/26/17 06:14 Albumin 4.2 g/dL (3.5-5.0) 08/26/17 06:14 Globulin 3.6 gm/dL (2.2-3.9) 08/26/17 06:14 Albumin/Globulin Ratio 1.2 (1.0-2.1) 08/26/17 06:14 Triglycerides 116 mg/dL (0-149) 08/22/17 16:45 Cholesterol 225 mg/dL (0-199) H 08/22/17 16:45 LDL Cholesterol Direct 142 mg/dL (0-129) H 08/22/17 16:45 HDL Cholesterol 63 mg/dL (30-70) 08/22/17 16:45 Urine Color Straw (YELLOW) 08/25/17 12:08 Urine Clarity Clear (Clear) 08/25/17 12:08 Urine pH 6.0 (5.0-8.0) 08/25/17 12:08 Ur Specific [place] 1.021 (1.003-1.030) 08/25/17 12:08 Urine Protein Negative mg/dL (NEGATIVE) 08/25/17 12:08 Urine Glucose (UA) 3+ mg/dL (Normal) H 08/25/17 12:08 Urine Ketones Negative mg/dL (NEGATIVE) 08/25/17 12:08 Urine Blood Negative (NEGATIVE) 08/25/17 12:08 Urine Nitrate Negative (NEGATIVE) 08/25/17 12:08 Urine Bilirubin Negative (NEGATIVE) 08/25/17 12:08 Urine Urobilinogen 2.0 mg/dL (0.2-1.0) H 08/25/17 12:08 Ur Leukocyte Esterase Neg Jackie/uL (Negative) 08/25/17 12:08 Urine WBC (Auto) < 1 /hpf (0-5) 08/25/17 12:08 Urine RBC (Auto) < 1 /hpf (0-3) 08/25/17 12:08 Ur Squamous Epith Cells < 1 /hpf (0-5) 08/22/17 18:13 Blood Type AB POSITIVE 08/22/17 17:46 Antibody Screen Negative 08/22/17 17:46 - Hospital Course Hospital Course: HPI (on admission): CC: altered mental status and slurred speech HPI: Patient is a 71 year old female with past medical history of HTN, DMII, chronic constipation, and brain aneurysm presents today because of an episode of slurred speech and confusion. Patient lives with her who helps her with her ADLs. This morning patient was feeling fine and acting normally. Her put her in bed before he went to go to the grocery store because he does not like her walking around the house alone because she is at baseline unsteady on her feet. Patient has left sided leg weakness at baseline and uses a cane to help her walk. When patient's returned about an hour later, patient was awake but talking nonsense and slurring her speech to the point that he could not understand anything she was saying. About 10 minutes after finding her like this he called 911 and EMS arrived about another 10 minutes later. By the time they arrived the patient was speaking more clearly. Patient had no chest pain, nausea, vomiting, bowel or bladder incontinence during this episode. did not see any shaking or any facial asymmetry. In the ED patient says she is feeling much better. She is not having any slurred speech and believes she is 100% better. Patient feels slightly lightheaded which she says started during the episode. Patient doesn't fully remember what happened, but does remember being evaluated by EMS. When asked the date patient is unsure, but knows it is August. Patient says it is 2021. Patient remembers that the last President was Obama, but does not know the name of the current president. Patient knows she is in [place] in a hospital. Patient's says this is about her baseline and she is often forgetful of the date. Patient admits to generalized weakness. Patient denies any headache, chest pain, shortness of breath, abdominal pain, nausea, vomiting, constipation, or diarrhea. PMD: Dr. Ness - [phone] Neuro: Dr. Aguirre (patient gets annual MRI since aneurysm) [phone] PMHx: brain aneurysm (06/11/14), HTN, DM II, chronic constipation PSurg: brain stent placed in 2013 Fam hx: Mom: DM, HTN; Dad: HTN, DM Social: denies tobacco, alcohol, drugs Home Meds: Glipizide 5mg daily, Januvia 25mg po BID, Metformin 500mg BID, Clonidine .1mg daily, Amlodipine 5mg HS, Miralax HS Allergies: Codeine, Penicillin, Thiopental- nausea/ vomiting HOSPITAL COURSE: This is a 71 year old female who was admitted for a brief episode of altered mental status. She was monitored for changes in mental status and admitted to telemetry. EKG was normal. Results of chest x-ray, Head CT and Head/Neck CTA are noted below. Neurologist Dr. Rusty Schuler was consulted--he recommended EEG to rule out seizures, PT/OT evaluation, hydration, and continued management of chronic medical conditions. Per Dr. Schuler, EEG was normal (official result still pending). Ordering a brain MRI was considered due to patient's fluctuating levels of alertness throughout hospital course; however, it is not clear if the clips patient has in place s/p brain aneurysm surgery in 2013 are MRI-safe and thus brain MRI was not ordered. Additionally, per patient's , patient's mental status had returned to baseline and thus patient's was reluctant to have Mrs Renteria get an MRI as she becomes claustraphobic. According to patient's PMD, patient had a brain MRA last month at [facility]. Repeat head CT on 08/24/17 and 08/26/17 (noted below) showed no acute changes. Urine culture showed growth of multiple species, which was attributed to probable contamination. Repeat urine cultures still pending at time of discharge. Preliminary blood cultures showed no growth. Patient's hemoglobin A1c was 8.1. Home metformin held due to IV contrast and home glipizide was held because patient was drowsy and vomited. Home Januvia was continued and patient was started on insulin sliding scale. Patient's blood pressure was elevated. Home clonidine was discontinued (due to adverse effects of somnolence and drowsiness, possibly contributing to patient' s symptoms). Home Amlodipine was increased from 5mg to 10mg. Lisinopril 10mg PO and Labetalol 100mg PO BID were added. Lipid panel was significant for elevated cholesterol and LDL; patient was started on Crestor 5mg PO HS. Patient's chronic constipation was managed with Miralax HS. Patient remained stable throughout clinical course, with home medications adjusted as noted above. Of importance, physical therapy recommended acute rehab for this patient. However both the patient and patient's refused acute rehab. Patient's instead requested home physical therapy - which was organized by case investigator. The last progress note is included below for further details on Mrs. Renteria's management course: 1) Encephalopathy Possible Seizure Hx of Brain Aneurysm s/p coiling and right frontal EVD Hx of CVA * Hx of ruptured brain aneurysm (s/p coiling and right frontal EVD), subdural hemorrhage, CVA * no report of urinary/bowel incontinence or tongue biting * no evidence of loss of consciousness * Neuro, Dr Shukla/Dr Schuler, consulted - help appreciated (see consult note) * Prior brain infarction (not lesions) in an area that cause susceptibility to seizures * EEG reviewed by neurology, appears normal * EKG-NSR at 60bmp * Urine Cx showed multiple species - probably contamination * Resident spoke with patient's pmd, patient has history of UTI infections * Patient's Neurologist Dr. Aguirre was contacted - waiting for call back * Resident spoke with PMD, patient had MRA last month at [facility] - PMD to fax over results which is in the chart 05/2017 Imaging: * CTA head and neck: Extensive encephalomalacia changes right frontal lobe and to a lesser degree left inferior frontal pole. Chronic left and suspected smaller chronic right cerebellar infarct changes. * Head CT w/o contrast: No intracranial mass, hemorrhage or evidence of acute infarct. Evidence of prior aneurysm repair. Multifocal encephalomalacia, unchanged. Chronic white matter ischemic change. Right frontal ventriculostomy catheter. 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 Linear atelectasis, right midlung zone. Ectatic aorta. * F/U EEG ordered (to rule out possible seizures) official report * Seizure precautions * Medications: * Start Crestor 5mg POqHS * Blood pressure control--> increase Lisinopril 10mg PO daily and add norvasc 10mg PO daily 2) DMII * HgbA1C 8.1 * held home medication: Glipizide 5mg po daily * Restart Januvia 25mg po BID and metformin 500mg PO BID * ISS-low * accuchecks ACHS * Hypoglycemia protocol 3) HTN * continue home medications: * Clonidine .1mg po daily * Amlodipine 10mg po HS 4) Hyperlipidemia * Cholesterol ELEVATED 225 * LDL ELEVATED 142 * Start Crestor 5mg PO QHS 5) Chronic constipation * continue home medication Miralax HS 6) Prophylaxis * Heparin 5000 u sc q8h, SCDs * Diabetic Diet * PT/OT eval and treat: recommended for acute rehab * Dietitian referral for poor appetite Discharge Exam - Additional Findings Additional findings: - Constitutional Appears: Well, No Acute Distress - Head Exam Head Exam: ATRAUMATIC, NORMAL INSPECTION - Eye Exam Eye Exam: EOMI Pupil Exam: PERRL - ENT Exam ENT Exam: Mucous Membranes Moist - Neck Exam Neck Exam: Normal Inspection. absent: Lymphadenopathy, Tenderness - Respiratory Exam Respiratory Exam: Clear to Ausculation Bilateral, NORMAL BREATHING PATTERN. absent: Rales, Rhonchi, Wheezes - Cardiovascular Exam Cardiovascular Exam: REGULAR RHYTHM, +S1, +S2. absent: Bradycardia, Tachycardia , JVD, Murmur - GI/Abdominal Exam GI & Abdominal Exam: Soft, Normal Bowel Sounds. absent: Distended, Firm, Guarding, Rigid, Tenderness, Mass, Rebound - Rectal Exam Rectal Exam: absent: Deferred - Extremities Exam Extremities Exam: Normal Capillary Refill, Normal Inspection. absent: Calf Tenderness, Pedal Edema, Tenderness - Neurological Exam Neurological Exam: Alert, Awake, Oriented x3 Additional comments: NO facial asymmetry noted sensations intact motor function 5/5 in LE babinski normal Patient AAOx3 NO slurred speech - Psychiatric Exam Psychiatric exam: Normal Affect, Normal Mood - Skin Skin Exam: Intact, Normal Color, Warm Discharge Plan - Discharge Medications Prescriptions: amLODIPine [Norvasc] 10 mg PO DAILY 30 Days #30 tab Lisinopril [Zestril] 10 mg PO 2200 30 Days #30 tab Rosuvastatin Calcium [Crestor] 5 mg PO HS 30 Days #30 tab - Follow Up Plan Condition: STABLE Disposition: HOME/ ROUTINE Instructions: Heart Healthy Diet, Carbohydrate Counting Diet, Altered Mental Status (DC), Amlodipine, Lisinopril, Rosuvastatin, Foot Care for Diabetics, Diabetes and Diet, Hypertension (DC), Hypertension (GEN) Additional Instructions: Patient is medically stable for discharge. Patient will be given scripts for the following new medications: 1. Amlodipine [Norvasc] 10mg by mouth once a day in the morning (this is an increase from her previous dose of 5mg) 2. Lisinopril [Zestril] 10mg by mouth once a day at bedtime (this is a new medication) 3. Rosuvastatin [Crestor] 5mg once a day at bedtime (this is a new medication) Please stop taking the following medication: 1. Clonidine 0.1mg TID Please resume all your other normal home medications (this includes the diabetes medications) The patient should follow-up with her PMD an Neurologist so they may be aware of this admission. We spoke to the PMD already. It is important that the PMD is aware of the new medication regimen. Please follow-up with your neurologist and ask him about daily Aspirin, as we believe you should be taking that also. If symptoms return or worse, please return to the ER. <Sarina Rodriguez V - Last Filed: 08/27/17 06:26> Provider - Provider Date of Admission: 08/22/17 19:00 Attending physician: Sarina Rodriguez, DO Hospital Course - Lab Results Lab Results: Micro Results 08/25/17 Unknown Urine,Clean Catch Urine Culture - Final No Growth (<1,000 CFU/ML) 08/25/17 10:45 Blood Blood Culture - Preliminary NO GROWTH AFTER 24 HOURS 08/25/17 08:39 Blood Blood Culture - Preliminary NO GROWTH AFTER 24 HOURS 08/22/17 18:30 Urine Urine Culture - Final 10-50,000 CFU/ML. MULTIPLE SPECIES. PROBABLE CONTAMINATION. Most Recent Lab Values WBC 8.8 K/uL (4.8-10.8) 08/26/17 06:14 RBC 4.41 Mil/uL (3.80-5.20) 08/26/17 06:14 Hgb 14.1 g/dL (11.0-16.0) 08/26/17 06:14 Hct 41.9 % (34.0-47.0) 08/26/17 06:14 MCV 95.0 fL (81.0-99.0) 08/26/17 06:14 MCH 32.1 pg (27.0-31.0) H 08/26/17 06:14 MCHC 33.8 g/dL (33.0-37.0) 08/26/17 06:14 RDW 13.1 % (11.5-14.5) 08/26/17 06:14 Plt Count 295 K/uL (130-400) 08/26/17 06:14 MPV 9.2 fL (7.2-11.7) 08/26/17 06:14 Neut % (Auto) 45.5 % (50.0-75.0) L 08/26/17 06:14 Lymph % (Auto) 45.6 % (20.0-40.0) H 08/26/17 06:14 Mckenzie % (Auto) 6.9 % (0.0-10.0) 08/26/17 06:14 Eos % (Auto) 1.3 % (0.0-4.0) 08/26/17 06:14 Baso % (Auto) 0.7 % (0.0-2.0) 08/26/17 06:14 Neut # (Auto) 4.0 K/uL (1.8-7.0) 08/26/17 06:14 Lymph # (Auto) 4.0 K/uL (1.0-4.3) 08/26/17 06:14 Mckenzie # (Auto) 0.6 K/uL (0.0-0.8) 08/26/17 06:14 Eos # (Auto) 0.1 K/uL (0.0-0.7) 08/26/17 06:14 Baso # (Auto) 0.1 K/uL (0.0-0.2) 08/26/17 06:14 PT 11.0 SECONDS (9.7-12.2) 08/22/17 16:45 INR 1.0 08/22/17 16:45 APTT 21 SECONDS (21-34) 08/22/17 16:45 Sodium 142 mmol/L (132-148) 08/26/17 06:14 Potassium 3.9 mmol/L (3.6-5.2) 08/26/17 06:14 Chloride 101 mmol/L (98-107) 08/26/17 06:14 Carbon Dioxide 24 mmol/L (22-30) 08/26/17 06:14 Anion Gap 21 (10-20) H 08/26/17 06:14 BUN 16 mg/dL (7-17) 08/26/17 06:14 Creatinine 0.5 mg/dL (0.7-1.2) L 08/26/17 06:14 Est GFR ( Amer) > 60 08/26/17 06:14 Est GFR (Non-Af Amer) > 60 08/26/17 06:14 POC Glucose (mg/dL) 146 mg/dL (65-110) H 08/26/17 16:22 Random Glucose 145 mg/dL (65-105) H 08/26/17 06:14 Hemoglobin A1c 8.1 % (4.2-6.5) H 08/22/17 16:45 Calcium 9.2 mg/dl (8.6-10.4) 08/26/17 06:14 Phosphorus 4.0 mg/dL (2.5-4.5) 08/26/17 06:14 Magnesium 2.0 mg/dL (1.6-2.3) 08/26/17 06:14 Total Bilirubin 0.4 mg/dL (0.2-1.3) 08/26/17 06:14 AST 28 U/L (14-36) 08/26/17 06:14 ALT 27 U/L (9-52) 08/26/17 06:14 Alkaline Phosphatase 111 U/L (38-126) 08/26/17 06:14 Troponin I < 0.0120 ng/mL (0.00-0.120) 08/22/17 16:45 Total Protein 7.8 g/dL (6.3-8.3) 08/26/17 06:14 Albumin 4.2 g/dL (3.5-5.0) 08/26/17 06:14 Globulin 3.6 gm/dL (2.2-3.9) 08/26/17 06:14 Albumin/Globulin Ratio 1.2 (1.0-2.1) 08/26/17 06:14 Triglycerides 116 mg/dL (0-149) 08/22/17 16:45 Cholesterol 225 mg/dL (0-199) H 08/22/17 16:45 LDL Cholesterol Direct 142 mg/dL (0-129) H 08/22/17 16:45 HDL Cholesterol 63 mg/dL (30-70) 08/22/17 16:45 Urine Color Straw (YELLOW) 08/25/17 12:08 Urine Clarity Clear (Clear) 08/25/17 12:08 Urine pH 6.0 (5.0-8.0) 08/25/17 12:08 Ur Specific [place] 1.021 (1.003-1.030) 08/25/17 12:08 Urine Protein Negative mg/dL (NEGATIVE) 08/25/17 12:08 Urine Glucose (UA) 3+ mg/dL (Normal) H 08/25/17 12:08 Urine Ketones Negative mg/dL (NEGATIVE) 08/25/17 12:08 Urine Blood Negative (NEGATIVE) 08/25/17 12:08 Urine Nitrate Negative (NEGATIVE) 08/25/17 12:08 Urine Bilirubin Negative (NEGATIVE) 08/25/17 12:08 Urine Urobilinogen 2.0 mg/dL (0.2-1.0) H 08/25/17 12:08 Ur Leukocyte Esterase Neg Jackie/uL (Negative) 08/25/17 12:08 Urine WBC (Auto) < 1 /hpf (0-5) 08/25/17 12:08 Urine RBC (Auto) < 1 /hpf (0-3) 08/25/17 12:08 Ur Squamous Epith Cells < 1 /hpf (0-5) 08/22/17 18:13 Blood Type AB POSITIVE 08/22/17 17:46 Antibody Screen Negative 08/22/17 17:46 Clinical Quality Measures - CQM - Stroke Antithrombotic Prescribed: Medical Contraindication Present Contranindication/Reason for not providing: Risk for Bleeding If Other selected, reason for not providing: hx of subarachnoid and subdural bleed Anticoagulation Prescribed for Atrial Flutter, Atrial Fibrillation and History of:: Not Applicable Statin prescribed: Yes Attending/Attestation - Attestation I have personally seen and examined this patient.: Yes I have fully participated in the care of the patient.: Yes I have reviewed all pertinent clinical information, including history, physical exam and plan: Yes Notes (Text): This is late computer entry for 08/26/17. Patient seen, examined, case discussed with medical research assistant. Patient seen during rounds. Patient appears more awake and alert. When seen earlier by neurology, patient appeared more drowsy, and recommended for repeat head CT and brain MRI. Per freelance photographer, unable to perform Brain MRI given history of coil and surgery clip in-spite of copy of patient's most recent head and neck MRA from [facility] in May 2017 and patient's prior surgical intervention in 2013 from when it was placed. Patient and refused the Brain MRI in addition. Discussed with neurology, the repeat CT head which do not show acute change, recommended for patient to follow-up with her PMD and neurologist. Blood pressure optimized: patient taken off Clonidine; prescriptions on discharge: Lisinopril 10mg PO daily, Norvasc 10mg PO daily, and Labetolol 100mg PO BID Diabetic medications: to resume on discharge (metformin, januvia, and glipizide) . Given statin upon discharge: Crestor 5mg PO qHS. and patient refused acute rehab; requested for home discharge to setup for home care on discharge. Copy of discharge summary to sent to PMD office via fax; not available via active face on time of discharge Discharge Diagnoses: 1) Encephalopathy-->resolved Possible Seizure-->None noted. Hx of Brain Aneurysm s/p coiling and right frontal EVD Hx of CVA * Hx of ruptured brain aneurysm (s/p coiling and right frontal EVD), subdural hemorrhage, CVA * no report of urinary/bowel incontinence or tongue biting * no evidence of loss of consciousness * Neuro, Dr Shukla/Dr Schuler, consulted - help appreciated (see consult note) * Prior brain infarction (not lesions) in an area that cause susceptibility to seizures * EEG reviewed by neurology, appears normal * EKG-NSR at 60bmp * Urine Cx showed multiple species - probably contamination * Resident spoke with patient's pmd, patient has history of UTI infections--> urine culture: no growth; and blood culture negative to date. * Patient's Neurologist Dr. Aguirre was contacted - waiting for call back * Resident spoke with PMD during hospitalization, patient had MRA last month at [facility] - PMD to fax over results which is in the chart 05/2017 Imaging: * CTA head and neck: Extensive encephalomalacia changes right frontal lobe and to a lesser degree left inferior frontal pole. Chronic left and suspected smaller chronic right cerebellar infarct changes. * Head CT w/o contrast: No intracranial mass, hemorrhage or evidence of acute infarct. Evidence of prior aneurysm repair. Multifocal encephalomalacia, unchanged. Chronic white matter ischemic change. Right frontal ventriculostomy catheter. 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 Linear atelectasis, right midlung zone. Ectatic aorta. * F/U EEG ordered (to rule out possible seizures) official report * Head CT w/o contrast: no acute intracranial abnormalitites. No significant findings to account for the clinical presentation. No significant inerval change compared to prio examinationations * Seizure precautions * Medications: * Start Crestor 5mg POqHS 2) DMII-->chronic * HgbA1C 8.1 * held home medication: Glipizide 5mg po daily * Restart Januvia 25mg po BID and metformin 500mg PO BID * ISS-low * accuchecks ACHS * Hypoglycemia protocol 3) HTNI-->chronic * continue home medications: * Clonidine .1mg po daily * Amlodipine 10mg po HS 4) HyperlipidemiaI-->chronic * Cholesterol ELEVATED 225 * LDL ELEVATED 142 * Start Crestor 5mg PO QHS 5) Chronic constipation * continue home medication Miralax HS 6) Prophylaxis * Heparin 5000 u sc q8h, SCDs * Diabetic Diet * PT/OT eval and treat: recommended for acute rehab-->patient and refused; request for home discharge * Dietitian referral for poor appetite
[2017-08-26 16:13] VITALS: TEMP 98.4
[2017-08-26 17:36] VITALS: BP 135/80
[2017-08-26 17:43] VITALS: PULSE 100
== END 2017-08-26 18:18 | disposition home or self-care (01) | DRG 72 ==
LOC: C.ER 16:25 → C.5S 19:00 → C.9E 19:19 → C.6T 22:33
PROVIDERS: ADMIT Hospitalist; ATTEND Hospitalist
DX: G93.40 Encephalopathy, unspecified (principal); I67.1 Cerebral aneurysm, nonruptured; E11.9 Type 2 diabetes mellitus without complications; Z93.1 Gastrostomy status; G93.89 Other specified disorders of brain; I10 Essential (primary) hypertension; Z98.890 Other specified postprocedural states; R47.81 Slurred speech; K59.09 Other constipation; Z86.73 Personal history of transient ischemic attack (TIA), and cerebral infarction without residual deficits; R26.81 Unsteadiness on feet; E78.5 Hyperlipidemia, unspecified

== ENCOUNTER 2018-06-05 15:59 | Inpatient (IN) | payer MEDICARE, BC ==
[2018-06-05 15:59] VITALS: BMI 19.8
[2018-06-05] MEDS ORDERED: Sodium Chloride 0.9% 1,000 ML IV ONE (17:08)
--- NOTE | 2018-06-05 17:26 | RAD ---
Date of service: 06/05/2018 PROCEDURE: Radiographs of the chest and abdomen (obstructive series) HISTORY: abd pain COMPARISON: No prior. TECHNIQUE: AP radiograph of the chest, with upright and supine radiographs of the abdomen. FINDINGS: CHEST: Lungs: Clear. Cardiovascular: Normal size heart. No pulmonary vascular congestion. No aortic atherosclerotic calcification present Pleura: No pleural fluid. No pneumothorax. Other findings: Ventriculoperitoneal shunt traverses the right hemithorax. ABDOMEN AND PELVIS: Bowel: Unremarkable bowel gas pattern. No evidence of mechanical obstruction. Free air: None. Bones: Unremarkable. Other findings: None. IMPRESSION: TRADITIONAL CHIN[employer] HERBALIST shunt. Otherwise unremarkable.
[2018-06-05 18:05] LABS: BASO # 0.1 K/uL (0.0-0.2); BASO % 0.7 % (0.0-2.0); EOS # 0.1 K/uL (0.0-0.7); EOS % 0.7 % (0.0-4.0); HEMOGLOBIN 12.6 g/dL (11.0-16.0); LYMPH # 2.7 K/uL (1.0-4.3); LYMPH % 26.2 % (20.0-40.0); MEAN CELL VOLUME 97.1 fL (81.0-99.0); MEAN CORPUSCULAR HEMOGLOBIN 32.1 pg (27.0-31.0); MEAN CORPUSCULAR HGB CONC 33.1 g/dL (33.0-37.0); MEAN PLATELET VOLUME 9.1 fL (7.2-11.7); MONO # 0.7 K/uL (0.0-0.8); MONO % 7.3 % (0.0-10.0); NEUT # 6.6 K/uL (1.8-7.0); NEUT % 65.1 % (50.0-75.0); RBC 3.91 Mil/uL (3.80-5.20); RED CELL DISTRIBUTION WIDTH 14.1 % (11.5-14.5); WHITE BLOOD COUNT 10.1 K/uL (4.8-10.8)
[2018-06-05 18:21] LABS: BLOOD UREA NITROGEN 18 mg/dL (7-17); CALCIUM 9.4 mg/dl (8.6-10.4); GFR NON-AFRICAN AMERICAN > 60; LIPASE 375 U/L (23-300)
[2018-06-05 18:24] LABS: ALB/GLOB RATIO 1.3 (1.0-2.1); ALT/SGPT 11 U/L (9-52); AST/SGOT 47 U/L (14-36)
[2018-06-05 18:33] LABS: B-TYPE NATRIURETIC PEPTIDE 17.3 pg/mL (0-900)
[2018-06-05] MEDS ORDERED: Iodixanol 320 MG/ML 100 ML BOTTLE IV ONE (18:55)
--- NOTE | 2018-06-05 19:13 | C.PDOC ---
History Of Present Illness 72 year old female presents to the ED for evaluation of chronic constipation. The patient reports last bowel movement was 3 days ago. She is home bound, eats by mouth (previously had a peg-tube). Confused at baseline. Denies fever, nausea, vomiting, and any other associated symptoms. Time Seen by Provider: 06/05/18 16:34 Chief Complaint (Nursing): GI Problem History Per: Patient History/Exam Limitations: no limitations Onset/Duration Of Symptoms: Days Current Symptoms Are (Timing): Still Present Past Medical History Reviewed: Historical Data, Nursing Documentation, Vital Signs Vital Signs: Last Vital Signs Temp 98.3 F 06/05/18 16:07 Pulse 79 06/05/18 18:49 Resp 16 06/05/18 18:49 BP 145/74 06/05/18 18:49 Pulse Ox 96 06/05/18 18:49 - Medical History PMH: Diabetes, HTN Denies: Chronic Kidney Disease - [facility] Procedures CONTINUOUS INVASIVE MECHANICAL VENTILATION <96 CONSEC HRS (07/12/13) INSERT ENDOTRACHEAL TUBE (07/12/13) REPLACE GASTROSTOMY TUBE (07/13/14) Family History: States: Unknown Family Hx - Social History Hx Tobacco Use: No Hx Alcohol Use: No Hx Substance Use: No - Immunization History Hx Tetanus Toxoid Vaccination: No Hx Influenza Vaccination: Yes Hx Pneumococcal Vaccination: No Review Of Systems Except As Marked, All Systems Reviewed And Found Negative. Constitutional: Negative for: Fever, Chills Gastrointestinal: Positive for: Constipation. Negative for: Nausea, Vomiting Neurological: Positive for: Confusion (at baseline. ) Physical Exam - Physical Exam Appears: Well, Non-toxic, No Acute Distress Skin: Normal Color, Warm, Dry Head: Atraumatic, Normacephalic Eye(s): bilateral: Normal Inspection Oral Mucosa: Moist Neck: Normal ROM, Supple Chest: Symmetrical, No Deformity Cardiovascular: Rhythm Regular, No Murmur Respiratory: Normal Breath Sounds, No Rales, No Rhonchi, No Wheezing Gastrointestinal/Abdominal: Normal Exam, Soft, No Tenderness, Distention, Other (dull to percussion) Neurological/Psych: Other (confused at baseline. 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 Otherwise unremarkable. - CT Scan/US CT ABD/PELVIS Other Rad Studies (CT/US): Read By Radiologist CT/US Interpretation: IMPRESSION: Marked thickening and irregular appearance to the antral portion of the stomach with inflammatory process or neoplasm was strong consideration. Small hiatal hernia. Radiopaque catheter at the upper anterior aspect of the abdomen. Large calcified fibroid uterus. Clinical correlation advised. Reevaluation Time: 20:00 Reassessment Condition: Improved - Physician Consult Information Outcome Of Conversation: 1730: d/w Dr. Rodriguez- Hospitalist allergist/immunologist physician- ok to admit. Medical Decision Making Medical Decision Making: Plan: -CT ABD/PELVIC IV Contrast only -Blood sent. -Protonix -Zofran -Urinalysis -Obstructive Series X-ray ? early biliary obstructive picture, but CT biliary normal +FOS enema and laxatives prob related to bedbound state and diet (taking PO) and h/o constipation Disposition Doctor Will See Patient In The: Hospital Counseled Patient/Family Regarding: Studies Performed, Diagnosis - Disposition Disposition: HOSPITALIZED Disposition Time: 20:00 Condition: GOOD Forms: [facility] (Arabic) - Clinical Impression Clinical Impression: Constipation - Scribe Statement The provider has reviewed the documentation as recorded by the Scribe (Domitila Kirk) Provider Attestation: All medical record entries made by the Scribe were at my direction and personally dictated by me. I have reviewed the chart and agree that the record accurately reflects my personal performance of the history, physical exam, medical decision making, and the department course for this patient. I have also personally directed, reviewed, and agree with the discharge instructions and disposition.
[2018-06-05 19:18] LABS: SQUAMOUS EPITHIAL < 1 /hpf (0-5); URINE BILIRUBIN NEGATIVE (NEGATIVE); URINE BLOOD NEGATIVE (NEGATIVE); URINE CLARITY Clear (Clear); URINE COLOR Yellow (YELLOW); URINE GLUCOSE (UA) 3+ mg/dL (Normal); URINE LEUKOCYTE ESTERASE NEG Leu/uL (Negative); URINE PROTEIN 1+ mg/dL (NEGATIVE); URINE UROBILINOGEN NORMAL mg/dL (0.2-1.0)
--- NOTE | 2018-06-05 22:16 | CP.PCM.HP ---
<Ni Albarran - Last Filed: 06/06/18 06:29> History of Present Illness - History of Present Illness History of Present Illness: CC "nausea, vomiting, constipation" HPI: Patient is a 72 year old female with history of diabetes, hypertension, brain aneurysm s/p coiling and right frontal EVD who presents with for 3 to 4 day history of progressively worsening nausea, vomiting and constipation. She states she has had vomiting about 1 hour after meals, described as nonbloody yellow material, 2 episodes today after her breakfast and lunch today. states that she has had issues with chronic constipation for which she takes Miralax daily. She denies any abdominal pain, but admits she has had some abdominal bloating. states he gave her some milk of magnesia yesterday and patient had small amount of brown stool prior to evaluation. Prior to that, patient had not had a bowel movement for 4 days. states she gets tired and weak intermittently since she had her brain aneurysm 5 year ago. She denies fevers, chills, dizziness, chest pain, palpitations, abdominal pain, urinary complaints including burning, frequency, leg pain. PMH: Type 2 DM, HTN, brain aneurysm s/p coil, chronic constipation PSH: Brain aneurysm - coiling and right frontal EVD Fam hx: Parents have DM and HTN Social hx: denies history of tobacco, alcohol or drug use. 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 Lives with her . Uses cane to walk. Home meds: Januvia 50mg daily, Metformin 500mg PO BID, Clonidine 0.1mg daily, Amlodipine 5mg, Miralax daily Allergies: PCN - hives, codeine,thiopental as per prior charts PMD: Dr. Oakes Neuro: Dr. Aguirre [phone] (as per patient's , due to get her last annual MRI since aneurysm in Jul) Present on Admission - Present on Admission Any Indicators Present on Admission: Yes History of Uncontrolled Diabetes: Yes Review of Systems - Constitutional Constitutional: absent: Chills, Fever - EENT Nose/Mouth/Throat: absent: Nasal Congestion, Sore Throat - Cardiovascular Cardiovascular: absent: Chest Pain, Dyspnea - Respiratory Respiratory: absent: Cough, Dyspnea - Gastrointestinal Gastrointestinal: Bloating, Constipation, Nausea, Vomiting. absent: Abdominal Pain - Genitourinary Genitourinary: absent: Change in Urinary Stream, Difficulty Urinating, Dysuria - Musculoskeletal Musculoskeletal: absent: Back Pain - Psychiatric Psychiatric: absent: Anxiety, Depression Past Patient History - Infectious Disease Hx of Infectious Diseases: None - Tetanus Immunizations Tetanus Immunization: Unknown - Past Medical History & Family History Past Medical History?: Yes - Past Social History Smoking Status: Unknown If Ever Smoked - CARDIAC Hx Hypertension: Yes - PULMONARY Hx Respiratory Disorders: No - NEUROLOGICAL HX Cerebrovascular Accident: Yes Other/Comment: Aneurysm - HEENT Hx HEENT Problems: No - RENAL Hx Chronic Kidney Disease: No - ENDOCRINE/METABOLIC Hx Diabetes Mellitus Type 2: Yes - HEMATOLOGICAL/ONCOLOGICAL Hx Blood Disorders: No - INTEGUMENTARY Hx Dermatological Problems: No - MUSCULOSKELETAL/RHEUMATOLOGICAL Hx Falls: No - GASTROINTESTINAL Hx Gastrointestinal Disorders: Yes (SEE COMMENT) Other/Comment: peg tube - GENITOURINARY/GYNECOLOGICAL Hx Genitourinary Disorders: No - PSYCHIATRIC Hx Substance Use: No - SURGICAL HISTORY Hx Surgeries: Yes (SEE COMMENT) Other/Comment: peg tube, brain sx for aneurysm - ANESTHESIA Hx Anesthesia: Yes Hx Anesthesia Reactions: No Hx Malignant Hyperthermia: No Meds Allergies/Adverse Reactions: Allergies Allergy/AdvReac Type Severity Reaction Status Date / Time codeine Allergy Verified 06/05/18 16:14 Penicillins Allergy Verified 06/05/18 16:14 thiopental Allergy Verified 06/05/18 16:14 tomato Allergy Verified 06/05/18 16:14 Physical Exam - Constitutional Appears: Non-toxic, No Acute Distress - Head Exam Head Exam: ATRAUMATIC, NORMOCEPHALIC - Eye Exam Eye Exam: EOMI, PERRL. absent: Conjunctival injection, Periorbital swelling - ENT Exam ENT Exam: Mucous Membranes Dry, Normal Oropharynx - Neck Exam Neck exam: Positive for: Full Rom. Negative for: Lymphadenopathy, Tenderness, T hyromegaly - Respiratory Exam Respiratory Exam: Clear to Auscultation Bilateral. absent: Rales, Rhonchi, Wheezes, Respiratory Distress, Stridor - Cardiovascular Exam Cardiovascular Exam: REGULAR RHYTHM, +S1, +S2. absent: Gallop, Rubs, Systolic Murmur - GI/Abdominal Exam GI & Abdominal Exam: Normal Bowel Sounds, Soft. absent: Distended, Firm, Guarding, Hernia, Rigid, Tenderness Additional comments: Old Peg tube site noted, no evidence of infection - Extremities Exam Extremities exam: Positive for: normal capillary refill, pedal pulses present. Negative for: calf tenderness, pedal edema - Back Exam Back exam: absent: CVA tenderness (L), CVA tenderness (R) - Neurological Exam Neurological exam: CN II-XII Intact Additional comments: Awake, but confused at baseline Results - Vital Signs Recent Vital Signs: Last Vital Signs Temp 98.1 F 06/05/18 20:58 Pulse 81 06/05/18 20:58 Resp 20 06/05/18 20:58 BP 154/72 H 06/05/18 20:58 Pulse Ox 95 06/05/18 20:58 - Labs Result Diagrams: 06/05/18 18:00 06/06/18 01:52 Labs: Laboratory Results - last 24 hr 06/05/18 06/05/18 06/05/18 18:00 18:00 19:13 WBC 10.1 RBC 3.91 Hgb 12.6 Hct 38.0 MCV 97.1 D MCH 32.1 H MCHC 33.1 RDW 14.1 Plt Count 280 MPV 9.1 Neut % (Auto) 65.1 Lymph % (Auto) 26.2 [place] % (Auto) 7.3 Eos % (Auto) 0.7 Baso % (Auto) 0.7 Neut # (Auto) 6.6 Lymph # (Auto) 2.7 [place] # (Auto) 0.7 Eos # (Auto) 0.1 Baso # (Auto) 0.1 Sodium 137 Potassium 5.7 H Chloride 100 Carbon Dioxide 24 Anion Gap 18 BUN 18 H Creatinine 0.6 L Est GFR ( Amer) > 60 Est GFR (Non-Af Amer) > 60 POC Glucose (mg/dL) Random Glucose 202 H D Calcium 9.4 Total Bilirubin 1.5 H AST 47 H D ALT 11 Alkaline Phosphatase 94 Troponin I 0.0240 NT-Pro-B Natriuret Pep 17.3 Total Protein 8.9 H Albumin 5.0 Globulin 3.9 Albumin/Globulin Ratio 1.3 Lipase 375 H Urine Color Yellow Urine Clarity Clear Urine pH 7.0 Ur Specific [place] 1.012 Urine Protein 1+ H Urine Glucose (UA) 3+ H Urine Ketones Negative Urine Blood Negative Urine Nitrate Negative Urine Bilirubin Negative Urine Urobilinogen Normal Ur Leukocyte Esterase Neg Urine WBC (Auto) < 1 Urine RBC (Auto) 1 Ur Squamous Epith Cells < 1 06/05/18 21:23 WBC RBC Hgb Hct MCV MCH MCHC RDW Plt Count MPV Neut % (Auto) Lymph % (Auto) [place] % (Auto) Eos % (Auto) Baso % (Auto) Neut # (Auto) Lymph # (Auto) [place] # (Auto) Eos # (Auto) Baso # (Auto) Sodium Potassium Chloride Carbon Dioxide Anion Gap BUN Creatinine Est GFR ( Amer) Est GFR (Non-Af Amer) POC Glucose (mg/dL) 147 H Random Glucose Calcium Total Bilirubin AST ALT Alkaline Phosphatase Troponin I NT-Pro-B Natriuret Pep Total Protein Albumin Globulin Albumin/Globulin Ratio Lipase Urine Color Urine Clarity Urine pH Ur Specific [place] Urine Protein Urine Glucose (UA) Urine Ketones Urine Blood Urine Nitrate Urine Bilirubin Urine Urobilinogen Ur Leukocyte Esterase Urine WBC (Auto) Urine RBC (Auto) Ur Squamous Epith Cells Assessment & Plan - Assessment and Plan (Free Text) Assessment: 72 year old female with history of Type 2 DM, HTN, brain aneurysm s/p coiling and right frontal EVD, chronic constipation who presents for nausea, vomiting. Plan: Nausea, vomiting Abd CT: marked thickening/irregular appearance of antrum, inflammation vs. neoplasm. small hiatal hernia. 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 Najera consulted, help appreciated History of peg tube, not currently in use. NS IV fluids Protonix 40mg IVP daily Currently NPO Chronic constipation Takes miralax daily Had bowel movement on admission History of brain aneurysm s/p coiling and right frontal EVD Continue to monitor History of DM Low dose ISS Hypoglycemic protocol NPO after midnight History of HTN Clonidine 0.1mg Amlodipine 5mg PO daily PPX: Lovenox, SCDs Diabetic diet PT/OT eval Dietitian referral Case discussed with Dr. Carol Albarran, PGY1 <Jin Medina - Last Filed: 06/06/18 06:48> Results - Vital Signs Recent Vital Signs: Last Vital Signs Temp 98.2 F 06/05/18 23:55 Pulse 84 06/05/18 23:55 Resp 20 06/05/18 23:55 BP 150/71 06/05/18 23:55 Pulse Ox 96 06/05/18 23:55 - Labs Result Diagrams: 06/05/18 18:00 06/06/18 01:52 Labs: Laboratory Results - last 24 hr 06/05/18 06/05/18 06/05/18 18:00 18:00 19:13 WBC 10.1 RBC 3.91 Hgb 12.6 Hct 38.0 MCV 97.1 D MCH 32.1 H MCHC 33.1 RDW 14.1 Plt Count 280 MPV 9.1 Neut % (Auto) 65.1 Lymph % (Auto) 26.2 [place] % (Auto) 7.3 Eos % (Auto) 0.7 Baso % (Auto) 0.7 Neut # (Auto) 6.6 Lymph # (Auto) 2.7 [place] # (Auto) 0.7 Eos # (Auto) 0.1 Baso # (Auto) 0.1 Sodium 137 Potassium 5.7 H Chloride 100 Carbon Dioxide 24 Anion Gap 18 BUN 18 H Creatinine 0.6 L Est GFR ( Amer) > 60 Est GFR (Non-Af Amer) > 60 POC Glucose (mg/dL) Random Glucose 202 H D Calcium 9.4 Phosphorus Magnesium Total Bilirubin 1.5 H AST 47 H D ALT 11 Alkaline Phosphatase 94 Total Creatine Kinase CK-MB (Mass) Troponin I 0.0240 NT-Pro-B Natriuret Pep 17.3 Total Protein 8.9 H Albumin 5.0 Globulin 3.9 Albumin/Globulin Ratio 1.3 Lipase 375 H Urine Color Yellow Urine Clarity Clear Urine pH 7.0 Ur Specific [place] 1.012 Urine Protein 1+ H Urine Glucose (UA) 3+ H Urine Ketones Negative Urine Blood Negative Urine Nitrate Negative Urine Bilirubin Negative Urine Urobilinogen Normal Ur Leukocyte Esterase Neg Urine WBC (Auto) < 1 Urine RBC (Auto) 1 Ur Squamous Epith Cells < 1 06/05/18 06/06/18 21:23 01:52 WBC RBC Hgb Hct MCV MCH MCHC RDW Plt Count MPV Neut % (Auto) Lymph % (Auto) [place] % (Auto) Eos % (Auto) Baso % (Auto) Neut # (Auto) Lymph # (Auto) [place] # (Auto) Eos # (Auto) Baso # (Auto) Sodium 137 Potassium 4.1 Chloride 102 Carbon Dioxide 26 Anion Gap 13 BUN 11 Creatinine 0.5 L Est GFR ( Amer) > 60 Est GFR (Non-Af Amer) > 60 POC Glucose (mg/dL) 147 H Random Glucose 122 H D Calcium 8.3 L Phosphorus 2.7 Magnesium 2.1 Total Bilirubin 0.7 AST 15 ALT 25 Alkaline Phosphatase 85 Total Creatine Kinase 32 CK-MB (Mass) 0.66 Troponin I < 0.0120 NT-Pro-B Natriuret Pep Total Protein 6.8 Albumin 4.2 Globulin 2.6 Albumin/Globulin Ratio 1.6 Lipase Urine Color Urine Clarity Urine pH Ur Specific [place] Urine Protein Urine Glucose (UA) Urine Ketones Urine Blood Urine Nitrate Urine Bilirubin Urine Urobilinogen Ur Leukocyte Esterase Urine WBC (Auto) Urine RBC (Auto) Ur Squamous Epith Cells Assessment & Plan - Date & Time Date: 06/06/18 (I have seen and examined the patient. I agree with the findings and plan of care as documented by Dr. Albarran. Patient with nausea and vomiting. Chronic constipation but with BM in ED. Obstruction series. History of PEG tube but no longer used. Consult to GI. History of CVA. Continue home meds. NPO for now. IVF. Monitor for acute changes.) Time: 06:46 Attending/Attestation - Attestation I have personally seen and examined this patient.: Yes I have fully participated in the care of the patient.: Yes I have reviewed all pertinent clinical information: Yes
[2018-06-05] MEDS ORDERED: Glucagon Recombinant 1 mg Inj IM PRN (23:12)
[2018-06-05] MEDS ORDERED: Dextrose 50% SYRINGE Inj (50 ml) IV PRN (23:12)
[2018-06-05] MEDS: Sodium Chloride 0.9% 1,000 ML IV SCH (23:42)
[2018-06-06 02:11] LABS: ALB/GLOB RATIO 1.6 (1.0-2.1); ALBUMIN 4.2 g/dL (3.5-5.0); ALT/SGPT 25 U/L (9-52); AST/SGOT 15 U/L (14-36); BLOOD UREA NITROGEN 11 mg/dL (7-17); CALCIUM 8.3 mg/dl (8.6-10.4); GFR NON-AFRICAN AMERICAN > 60
[2018-06-06 02:19] LABS: CK-MB 0.66 ng/mL (0.0-3.38)
[2018-06-06] MEDS: (Novolin R) Insulin Human Regular 100 units/ml vial SC SCH ×4 (07:43→21:40)
[2018-06-06] MEDS: Sodium Chloride 0.9% 1,000 ML IV SCH ×2 (08:28→13:41)
[2018-06-06 09:13] LABS: BASO % 0.5 % (0.0-2.0); EOS # 0.1 K/uL (0.0-0.7); EOS % 1.3 % (0.0-4.0); HEMOGLOBIN 11.3 g/dL (11.0-16.0); LYMPH # 2.7 K/uL (1.0-4.3); LYMPH % 35.1 % (20.0-40.0); MEAN CELL VOLUME 96.5 fL (81.0-99.0); MEAN CORPUSCULAR HEMOGLOBIN 31.6 pg (27.0-31.0); MEAN CORPUSCULAR HGB CONC 32.7 g/dL (33.0-37.0); MEAN PLATELET VOLUME 8.6 fL (7.2-11.7); MONO # 0.7 K/uL (0.0-0.8); MONO % 8.8 % (0.0-10.0); NEUT # 4.1 K/uL (1.8-7.0); NEUT % 54.3 % (50.0-75.0); NRBC % 0.1 % (0.0-2.0); RBC 3.58 Mil/uL (3.80-5.20); RED CELL DISTRIBUTION WIDTH 13.7 % (11.5-14.5); WHITE BLOOD COUNT 7.6 K/uL (4.8-10.8)
[2018-06-06 09:20] LABS: INR 1.1; PROTHROMBIN TIME 11.9 SECONDS (9.7-12.2)
[2018-06-06 09:30] LABS: HDL CHOLESTEROL 52 mg/dL (30-70)
[2018-06-06 09:40] LABS: LDL CHOLESTEROL 89 mg/dL (0-129)
[2018-06-06 09:41] LABS: CK-MB 0.55 ng/mL (0.0-3.38)
--- NOTE | 2018-06-06 09:51 | CT ---
Date of service: 06/05/2018 PROCEDURE: CT Abdomen and Pelvis with contrast HISTORY: VOM, ? biliary COMPARISON: None. TECHNIQUE: Contrast dose: Radiation dose: Total exam DLP = 263.59 mGy-cm. This CT exam was performed using one or more of the following dose reduction techniques: Automated exposure control, adjustment of the mA and/or kV according to patient size, and/or use of iterative reconstruction technique. FINDINGS: LOWER THORAX: Unremarkable. LIVER: Unremarkable. No gross lesion or ductal dilatation. GALLBLADDER AND BILE DUCTS: Unremarkable. PANCREAS: Unremarkable. No gross lesion or ductal dilatation. SPLEEN: Unremarkable. ADRENALS: Unremarkable. No mass. KIDNEYS AND URETERS: Unremarkable. No hydronephrosis. No solid mass. VASCULATURE: Unremarkable. No aortic aneurysm. No aortic atherosclerotic calcification or mural plaque present. BOWEL: Unremarkable. No obstruction. No gross mural thickening. Lack of oral contrast limits assessment of the bowel. APPENDIX: Normal appendix. PERITONEUM: Unremarkable. No free fluid. No free air. LYMPH NODES: Unremarkable. No enlarged lymph nodes. BLADDER: Unremarkable. REPRODUCTIVE: Calcified leiomyomatous uterus BONES: No acute fracture. OTHER FINDINGS: Right-sided intraperitoneal catheter. IMPRESSION: No acute pathology.
[2018-06-06] MEDS ORDERED: Propofol 10 mg/ml Inj (20 ML) ONE (09:57)
[2018-06-06] MEDS ORDERED: Enoxaparin 40 mg Syringe SC SCH (10:00)
[2018-06-06] MEDS ORDERED: Magnesium Citrate Oral SOL (300 ml) PO ONE (10:15)
--- NOTE | 2018-06-06 11:44 | CP.PCM.PN ---
<Thom Soto - Last Filed: 06/06/18 15:37> Subjective - Date & Time of Evaluation Date of Evaluation: 06/06/18 Time of Evaluation: 11:39 - Subjective Subjective: PGY-[address] Rodriguez Patient seen and examined at bedside this morning. No acute events overnight. Patient was being kept NPO and did end up going for upper endoscopy this morning. When I spoke with her prior to EGD, patient stated her nausea had improved significantly. Patient denied any additional symptoms including chest pain, dizziness, headache, shortness of breath. Patient re-examined post-EGD and she was drowsy but appears she tolerated the procedure well. Diet advanced to clears per GI. Objective - Vital Signs/Intake and Output Vital Signs (last 24 hours): Temp Pulse Resp BP Pulse Ox 96.2 F L 70 13 146/71 100 06/06/18 10:10 06/06/18 10:40 06/06/18 10:40 06/06/18 10:40 06/06/18 10:40 Intake and Output: 06/06/18 06/06/18 06:59 18:59 Intake Total 800 300 Balance 800 300 - Medications Medications: Current Medications Amlodipine Besylate (Norvasc) 5 mg PO DAILY [facility] Last Admin: 06/06/18 09:27 Dose: Not Given Bisacodyl (Dulcolax) 10 mg PO ONCE ONE Stop: 06/07/18 17:01 Clonidine HCl (Catapres) 0.1 mg PO BID [facility] Last Admin: 06/06/18 09:27 Dose: Not Given Dextrose (Dextrose 50% Inj) 0 ml IV STAT PRN; Protocol PRN Reason: Hypoglycemia Protocol Dextrose (Glutose 15) 0 gm PO ONCE PRN; Protocol PRN Reason: Hypoglycemia Protocol Docusate Sodium (Colace) 100 mg PO BID [facility] Last Admin: 06/06/18 09:27 Dose: Not Given Enoxaparin Sodium (Lovenox) 40 mg SC DAILY [facility] Glucagon (Glucagen Diagnostic Kit) 0 mg IM STAT PRN; Protocol PRN Reason: Hypoglycemia Protocol Sodium Chloride (Sodium Chloride 0.9%) 1,000 mls @ 100 mls/hr IV .Q10H [facility] Last Admin: 06/06/18 08:28 Dose: Not Given Dextrose (Dextrose 5% In Water 1000 Ml) 1,000 mls @ 0 mls/hr IV .Q0M PRN; Protocol PRN Reason: Hypoglycemia Protocol Insulin Human Regular (Novolin R) 0 unit SC ACHS [facility]; Protocol Last Admin: 06/06/18 11:02 Dose: Not Given Pantoprazole Sodium (Protonix Inj) 40 mg IVP DAILY [facility] Last Admin: 06/06/18 09:28 Dose: Not Given Polyethylene Glycol/Electrolytes (Golytely) 4,000 ml PO ONCE ONE Stop: 06/07/18 08:01 - Labs Labs: 06/06/18 08:58 06/06/18 01:52 PT 11.9 SECONDS (9.7-12.2) 06/06/18 08:58 INR 1.1 06/06/18 08:58 APTT 29 SECONDS (21-34) 06/06/18 08:58 - Constitutional Appears: Non-toxic, No Acute Distress - Head Exam Head Exam: ATRAUMATIC, NORMAL INSPECTION - Eye Exam Eye Exam: EOMI, Normal appearance - ENT Exam ENT Exam: Mucous Membranes Moist - Respiratory Exam Respiratory Exam: Clear to Ausculation Bilateral. absent: Rales, Rhonchi, Wheezes - Cardiovascular Exam Cardiovascular Exam: REGULAR RHYTHM, +S1, +S2 - GI/Abdominal Exam GI & Abdominal Exam: Soft, Hyperactive Bowel Sounds. absent: Distended, Tenderness - Extremities Exam Extremities Exam: Normal Inspection. absent: Pedal Edema - Neurological Exam Neurological Exam: Alert, Awake, CN II-XII Intact, Oriented x3 - Psychiatric Exam Psychiatric exam: Normal Affect, Normal Mood - Skin Skin Exam: Dry, Intact, Normal Color Assessment and Plan - Assessment and Plan (Free Text) Assessment: 72 year old female with history of Type 2 DM, HTN, brain aneurysm s/p coiling and right frontal EVD, chronic constipation who presents for nausea, vomiting. Plan: Nausea, vomiting Abd CT 06/05: marked thickening/irregular appearance of antrum, inflammation vs. neoplasm. small hiatal hernia. 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 Najera consulted, help appreciated History of peg tube, not currently in use. NS IV fluids Protonix 40mg IVP daily EGD 06/06 showed esophagitis, small hiatal hernia, gastrostomy present, and erythematous mucosa of the gastric antrum. Biopsies were taken and sent for path. See full report for details. Patient advanced to clears per GI Per nursing, patient is planned for colonoscopy with Dr. Najera on Wednesday Chronic constipation Takes miralax daily Had bowel movement on admission History of brain aneurysm s/p coiling and right frontal EVD Continue to monitor History of DM Low dose ISS Hypoglycemic protocol CLD History of HTN Clonidine 0.1mg Amlodipine 5mg PO daily PPX: Lovenox, SCDs Diabetic diet PT/OT eval Dietitian referral Case discussed with Dr. Jennifer Soto, PGY1 <Sarina Rodriguez V - Last Filed: 06/07/18 19:27> Objective - Vital Signs/Intake and Output Vital Signs (last 24 hours): Temp Pulse Resp BP Pulse Ox 98.3 F 64 20 147/80 97 06/07/18 16:00 06/07/18 16:00 06/07/18 16:00 06/07/18 16:00 06/07/18 16:00 Intake and Output: 06/07/18 06/07/18 06:59 18:59 Intake Total 1000 920 Balance 1000 920 - Medications Medications: Current Medications Amlodipine Besylate (Norvasc) 5 mg PO DAILY [facility] Last Admin: 06/07/18 10:44 Dose: 5 mg Clonidine HCl (Catapres) 0.1 mg PO BID [facility] Last Admin: 06/07/18 17:39 Dose: 0.1 mg Dextrose (Dextrose 50% Inj) 0 ml IV STAT PRN; Protocol PRN Reason: Hypoglycemia Protocol Dextrose (Glutose 15) 0 gm PO ONCE PRN; Protocol PRN Reason: Hypoglycemia Protocol Docusate Sodium (Colace) 100 mg PO BID [facility] Last Admin: 06/07/18 17:39 Dose: 100 mg Glucagon (Glucagen Diagnostic Kit) 0 mg IM STAT PRN; Protocol PRN Reason: Hypoglycemia Protocol Sodium Chloride (Sodium Chloride 0.9%) 1,000 mls @ 100 mls/hr IV .Q10H [facility] Last Admin: 06/07/18 14:32 Dose: Not Given Dextrose (Dextrose 5% In Water 1000 Ml) 1,000 mls @ 0 mls/hr IV .Q0M PRN; Protocol PRN Reason: Hypoglycemia Protocol Insulin Human Regular (Novolin R) 0 unit SC [facility]; Protocol Last Admin: 06/07/18 13:51 Dose: Not Given Pantoprazole Sodium (Protonix Inj) 40 mg IVP DAILY [facility] Last Admin: 06/07/18 10:42 Dose: 40 mg - Labs Labs: 06/06/18 08:58 06/06/18 01:52 PT 11.9 SECONDS (9.7-12.2) 06/06/18 08:58 INR 1.1 06/06/18 08:58 APTT 29 SECONDS (21-34) 06/06/18 08:58 Attending/Attestation - Attestation I have personally seen and examined this patient.: Yes I have fully participated in the care of the patient.: Yes I have reviewed all pertinent clinical information, including history, physical exam and plan: Yes
[2018-06-07] MEDS: Sodium Chloride 0.9% 1,000 ML IV SCH ×3 (00:39→14:32)
--- NOTE | 2018-06-07 03:19 | CP.PCM.PN ---
Subjective - Date & Time of Evaluation Date of Evaluation: 06/07/18 Time of Evaluation: 03:17 - Subjective Subjective: Progress Note Patient seen and examined at bedside. She states she has not had any more nausea or vomiting. She has had brown nonbloody stools today. She was able to tolerate endoscopy well and has been advanced to clear liquids. She denies fevers, chills, headache, dizziness, chest pain, shortness of breath, abdominal pain, diarrhea, constipation. Objective - Vital Signs/Intake and Output Vital Signs (last 24 hours): Temp Pulse Resp BP Pulse Ox 98 F 65 20 117/67 96 06/06/18 23:28 06/06/18 23:28 06/06/18 23:28 06/06/18 23:28 06/06/18 23:28 Intake and Output: 06/06/18 06/07/18 18:59 06:59 Intake Total 1100 1000 Balance 1100 1000 - Medications Medications: Current Medications Amlodipine Besylate (Norvasc) 5 mg PO DAILY [facility] Last Admin: 06/06/18 09:27 Dose: Not Given Bisacodyl (Dulcolax) 10 mg PO ONCE ONE Stop: 06/07/18 17:01 Clonidine HCl (Catapres) 0.1 mg PO BID [facility] Last Admin: 06/06/18 17:50 Dose: 0.1 mg Dextrose (Dextrose 50% Inj) 0 ml IV STAT PRN; Protocol PRN Reason: Hypoglycemia Protocol Dextrose (Glutose 15) 0 gm PO ONCE PRN; Protocol PRN Reason: Hypoglycemia Protocol Docusate Sodium (Colace) 100 mg PO BID [facility] Last Admin: 06/06/18 17:50 Dose: 100 mg Glucagon (Glucagen Diagnostic Kit) 0 mg IM STAT PRN; Protocol PRN Reason: Hypoglycemia Protocol Heparin Sodium (Porcine) (Heparin) 5,000 units SC Q12 [facility] Last Admin: 06/06/18 21:39 Dose: 5,000 units Sodium Chloride (Sodium Chloride 0.9%) 1,000 mls @ 100 mls/hr IV .Q10H [facility] Last Admin: 06/07/18 00:39 Dose: 100 mls/hr Dextrose (Dextrose 5% In Water 1000 Ml) 1,000 mls @ 0 mls/hr IV .Q0M PRN; Protocol PRN Reason: Hypoglycemia Protocol Insulin Human Regular (Novolin R) 0 unit SC ACHS LISSET; Protocol Last Admin: 06/06/18 21:40 Dose: Not Given Pantoprazole Sodium (Protonix Inj) 40 mg IVP DAILY [facility] Last Admin: 06/06/18 09:28 Dose: Not Given Polyethylene Glycol/Electrolytes (Golytely) 4,000 ml PO ONCE ONE Stop: 06/07/18 08:01 - Labs Labs: 06/06/18 08:58 06/06/18 01:52 PT 11.9 SECONDS (9.7-12.2) 06/06/18 08:58 INR 1.1 06/06/18 08:58 APTT 29 SECONDS (21-34) 06/06/18 08:58 - Constitutional Appears: Non-toxic, No Acute Distress - Head Exam Head Exam: ATRAUMATIC, NORMOCEPHALIC - Eye Exam Eye Exam: EOMI - ENT Exam ENT Exam: Mucous Membranes Moist - Neck Exam Neck Exam: Full ROM - Respiratory Exam Respiratory Exam: Clear to Ausculation Bilateral, NORMAL BREATHING PATTERN. a bsent: Rales, Rhonchi, Wheezes, Respiratory Distress, Stridor - Cardiovascular Exam Cardiovascular Exam: REGULAR RHYTHM, +S1, +S2. absent: Gallop, Rubs, Murmur - GI/Abdominal Exam GI & Abdominal Exam: Soft, Normal Bowel Sounds. absent: Distended, Firm, Guarding, Tenderness - Extremities Exam Extremities Exam: Normal Capillary Refill. absent: Calf Tenderness, Pedal Edema - Neurological Exam Neurological Exam: Alert, Awake - Skin Skin Exam: Dry, Intact, Warm Assessment and Plan - Assessment and Plan (Free Text) Assessment: 72 year old female with history of Type 2 DM, HTN, brain aneurysm s/p coiling and right frontal EVD, chronic constipation who presents for nausea, vomiting. Plan: Nausea, vomiting Abd CT 06/05: marked thickening/irregular appearance of antrum, inflammation vs. neoplasm. small hiatal hernia. Obstructive series 06/05: OUTREACH CLINICIAN shunt, otherwise unremarkable GI Dr. Najera consulted, help appreciated History of peg tube, not currently in use. NS IV fluids Protonix 40mg IVP daily EGD 06/06 showed esophagitis, small hiatal hernia, gastrostomy present, and erythematous mucosa of the gastric antrum. Biopsies were taken and sent for path. See full report for details. Patient advanced to clears per GI Per nursing, patient is planned for colonoscopy with Dr. Najera on Wednesday06/08/18 Chronic constipation Takes miralax daily Has had BMs here Colace 100mg PO BID History of brain aneurysm s/p coiling and right frontal EVD Continue to monitor History of DM Low dose ISS Hypoglycemic protocol CLD History of HTN Clonidine 0.1mg PO BID Amlodipine 5mg PO daily PPX: Heparin 5000 unit SC Q12, SCDs Diabetic diet PT/OT eval Dietitian referral Case discussed with Dr. Jennifer Albarran, PGY1
[2018-06-07] MEDS ORDERED: Peg-Electrolyte Oral Soln 4L (Golytely) PO ONE (08:00)
[2018-06-07] MEDS: (Novolin R) Insulin Human Regular 100 units/ml vial SC SCH ×4 (08:01→21:35)
[2018-06-07] MEDS ORDERED: Enoxaparin 40 mg Syringe SC SCH (10:00)
--- NOTE | 2018-06-07 11:11 | PN ---
DATE: , bed A. SUBJECTIVE: This is a 72-year-old female, post upper endoscopy yesterday, seen and examined in rounds early this morning with a main complaint of intermittent period of mild abdominal pain on and off with generalized weakness. No reported active bleeding. The most recent lab results yesterday showed normal hemoglobin and hematocrit with blood glucose level 142 and normal liver function test as well as thyroid function test. Cancer markers is still pending. PHYSICAL EXAMINATION: GENERAL: A 72-year-old female, awake, alert, appears to be oriented. VITAL SIGNS: Afebrile with pulse of 68, respiratory rate 20 to 22, blood pressure of 124/70. HEENT: Showed pale dry oral mucoid membrane. Nonicteric sclerae. LUNGS: Few scattered crepitation. Decreased air entry at bases. HEART: Positive S1 and S2. ABDOMEN: Soft with mild generalized tenderness. No mass or organomegaly. No rebound tenderness or guarding. EXTREMITIES: With evidence of mild muscle wasting syndrome. NEUROLOGIC: No reported new neurological deficits, sensory or motor. IMPRESSION: 1. Abnormal radiology study results of the abdomen and pelvis. 2. Re-exacerbation of peptic ulcer disease with distal esophagitis, gastritis and evidence of gastroparesis. 3. Poorly controlled diabetes mellitus. 4. Known history of hypertension. SUGGESTIONS: 1. Agree with your plan. 2. Antireflux measure. 3. Cancer markers. 4. The patient for colonoscopy. Further recommendation to follow. Jaylyn Jenkins MD
[2018-06-07] MEDS ORDERED: Bisacodyl 5mg EC Tab PO ONE (17:00)
[2018-06-08] MEDS: Sodium Chloride 0.9% 1,000 ML IV SCH ×3 (00:30→12:50)
[2018-06-08] MEDS: (Novolin R) Insulin Human Regular 100 units/ml vial SC SCH ×2 (08:48→12:43)
--- NOTE | 2018-06-08 10:31 | CON ---
DATE: 06/05/[address] Jenkins to Dr. Sarina Rodriguez. I was called for GI consultation by the medical team. The patient is seen and fully examined on as requested by the admitting medical staff. A short hand written consultation sheet left in the chart at the time of my GI consultation. The entire chart is reviewed including but not limited to the most recent lab and radiology study results, current and the previous medication list, current and the previous medical events, allergy to medication list as well as all the available current and past medical records. Case discussed with the staff at length at that time of my physical examination and GI consultation on 06/05/2018 This 72-year-old female was admitted to the hospital with the main complaint of generalized weakness and malaise, dyspepsia, chronic constipation, loss of appetite, less oral intake with period of slight disorientation as per history, but appeared to be for me completely awake, alert and oriented at the time of my physical examination. On record, the patient had previously a PEG tube insertion, which was removed due to no need for it at that time. No reported active bleeding. After being admitted to the hospital, the patient was found basically normal CBC with increased potassium to 5.7. Blood glucose level 202. The patient also had periods of nausea and vomiting for 3-4 days prior to her admission and the last bowel movement reported to be for 5 days. No reported actual chest pain, palpitation, significant shortness of breath, chills or fever. Generalized weakness and malaise with easy fatigue was reported at the time of her admission. PAST MEDICAL HISTORY: Including mainly but not limited to; 1. Hypertension. 2. Diabetes mellitus. 3. Peptic ulcer disease. 4. Brain aneurysm with status post coil. 5. Chronic constipation by history. FAMILY HISTORY: Positive for diabetes mellitus and hypertension. SOCIAL HISTORY: No reported recent history of cigarette smoking or alcohol intake. ALLERGIES TO MEDICATIONS: PENICILLIN AND CODEINE WELL . CURRENT MEDICATIONS: Post admission medication list was reviewed. PHYSICAL EXAMINATION: GENERAL: A 72-year-old female, afebrile with pulse of 74, respiratory rate 18-20, blood pressure of 142/72. HEENT: Showed pale dry oral mucoid membrane. Nonicteric sclerae. LYMPH NODES: No lymphadenitis or lymphadenopathy. LUNGS: Few scattered mild crepitation. Decreased air entry at bases. HEART: Positive S1 and S2. ABDOMEN: Soft with [id number] distention. Bowel sounds are hypoactive. Generalized tenderness is positive. No mass or organomegaly. No rebound tenderness or guarding. RECTAL: Rectal examination, the patient refused. EXTREMITIES: With evidence of mild muscle wasting syndrome of the lower extremities and slight edema. No mass or organomegaly. No rebound tenderness or guarding. NEUROLOGIC: No reported new neurological deficits, sensory or motor. No reported new focal deficits. IMPRESSION: 1. Re-exacerbation of peptic ulcer disease with recurrent episodes of nausea and vomiting to rule out gastric versus duodenal ulcer. 2. Constipation, with significant change of bowel movement, recently associated with some body weight loss of unclear etiology, to rule out occult GI malignancy. 3. Past medical history as mentioned above. 4. Known past medical history of status post gastrostomy tube insertion, removed previously. SUGGESTIONS: 1. Agree with your plan. 2. Peripheral hyperalimentation. 3. Upper endoscopy to followed by colonoscopy after more adequate and slow preparation. 4. Cancer markers. 5. Proton pump inhibitors IV. 6. Reglan IV. 7. Calorie counting. 8. Sectional abdominal and pelvic CAT scan. 9. Further recommendation to follow. Thank you for letting me participate in your patient's case management. Jaylyn Jenkins MD
[2018-06-08] MEDS ORDERED: Propofol 10 mg/ml Inj (20 ML) ONE (11:15)
[2018-06-08 11:33] LABS: HEMOGLOBIN 11.7 g/dL (11.0-16.0); MEAN CORPUSCULAR HEMOGLOBIN 32.2 pg (27.0-31.0); MEAN CORPUSCULAR HGB CONC 33.6 g/dL (33.0-37.0); MEAN PLATELET VOLUME 8.8 fL (7.2-11.7); RBC 3.62 Mil/uL (3.80-5.20); RED CELL DISTRIBUTION WIDTH 13.6 % (11.5-14.5); WHITE BLOOD COUNT 6.8 K/uL (4.8-10.8)
[2018-06-08 11:45] VITALS: TEMP 97.3
[2018-06-08 11:53] LABS: ALB/GLOB RATIO 1.5 (1.0-2.1); ALBUMIN 4.2 g/dL (3.5-5.0); ALT/SGPT 37 U/L (9-52); AST/SGOT 30 U/L (14-36); BLOOD UREA NITROGEN 4 mg/dL (7-17); CALCIUM 8.5 mg/dl (8.6-10.4); GFR NON-AFRICAN AMERICAN > 60
--- NOTE | 2018-06-08 11:54 | CP.PCM.DIS ---
Provider - Provider Date of Admission: 06/05/18 19:49 Attending physician: Sarina Rodriguez DO Consults: 06/05/18 22:23 Physician Consult Routine Comment: Consulting Provider: Jaylyn Najera Consulting Physician: Jaylyn Najera Reason for Consult: thickening, irregular antrum- inflammation vs. neoplasm Time Spent in preparation of Discharge (in minutes): 45 Diagnosis - Discharge Diagnosis (1) Nausea & vomiting Status: Acute Hospital Course - Lab Results Lab Results: Most Recent Lab Values WBC 6.8 K/uL (4.8-10.8) 06/08/18 11:07 RBC 3.62 Mil/uL (3.80-5.20) L 06/08/18 11:07 Hgb 11.7 g/dL (11.0-16.0) 06/08/18 11:07 Hct 34.8 % (34.0-47.0) 06/08/18 11:07 MCV 96.0 fL (81.0-99.0) 06/08/18 11:07 MCH 32.2 pg (27.0-31.0) H 06/08/18 11:07 MCHC 33.6 g/dL (33.0-37.0) 06/08/18 11:07 RDW 13.6 % (11.5-14.5) 06/08/18 11:07 Plt Count 284 K/uL (130-400) 06/08/18 11:07 MPV 8.8 fL (7.2-11.7) 06/08/18 11:07 Neut % (Auto) 54.3 % (50.0-75.0) 06/06/18 08:58 Lymph % (Auto) 35.1 % (20.0-40.0) 06/06/18 08:58 Avery % (Auto) 8.8 % (0.0-10.0) 06/06/18 08:58 Eos % (Auto) 1.3 % (0.0-4.0) 06/06/18 08:58 Baso % (Auto) 0.5 % (0.0-2.0) 06/06/18 08:58 Neut # (Auto) 4.1 K/uL (1.8-7.0) 06/06/18 08:58 Lymph # (Auto) 2.7 K/uL (1.0-4.3) 06/06/18 08:58 Avery # (Auto) 0.7 K/uL (0.0-0.8) 06/06/18 08:58 Eos # (Auto) 0.1 K/uL (0.0-0.7) 06/06/18 08:58 Baso # (Auto) 0.0 K/uL (0.0-0.2) 06/06/18 08:58 PT 11.9 SECONDS (9.7-12.2) 06/06/18 08:58 INR 1.1 06/06/18 08:58 APTT 29 SECONDS (21-34) 06/06/18 08:58 Sodium 137 mmol/L (132-148) 06/06/18 01:52 Potassium 4.1 mmol/L (3.6-5.2) 06/06/18 01:52 Chloride 102 mmol/L (98-107) 06/06/18 01:52 Carbon Dioxide 26 mmol/L (22-30) 06/06/18 01:52 Anion Gap 13 (10-20) 06/06/18 01:52 BUN 11 mg/dL (7-17) 06/06/18 01:52 Creatinine 0.5 mg/dL (0.7-1.2) L 06/06/18 01:52 Est GFR ( Amer) > 60 06/06/18 01:52 Est GFR (Non-Af Amer) > 60 06/06/18 01:52 POC Glucose (mg/dL) 142 mg/dL (65-110) H 06/06/18 21:04 Random Glucose 122 mg/dL (65-105) H D 06/06/18 01:52 Hemoglobin A1c 8.1 % (4.2-6.5) H 06/06/18 08:58 Calcium 8.3 mg/dl (8.6-10.4) L 06/06/18 01:52 Phosphorus 2.7 mg/dL (2.5-4.5) 06/06/18 01:52 Magnesium 2.1 mg/dL (1.6-2.3) 06/06/18 01:52 Total Bilirubin 0.7 mg/dL (0.2-1.3) 06/06/18 01:52 AST 15 U/L (14-36) 06/06/18 01:52 ALT 25 U/L (9-52) 06/06/18 01:52 Alkaline Phosphatase 85 U/L (38-126) 06/06/18 01:52 Total Creatine Kinase 49 U/L (30-135) 06/06/18 08:58 CK-MB (Mass) 0.55 ng/mL (0.0-3.38) 06/06/18 08:58 Troponin I < 0.0120 ng/mL (0.00-0.120) 06/06/18 08:58 NT-Pro-B Natriuret Pep 17.3 pg/mL (0-900) 06/05/18 18:00 Total Protein 6.8 g/dL (6.3-8.3) 06/06/18 01:52 Albumin 4.2 g/dL (3.5-5.0) 06/06/18 01:52 Globulin 2.6 gm/dL (2.2-3.9) 06/06/18 01:52 Albumin/Globulin Ratio 1.6 (1.0-2.1) 06/06/18 01:52 Triglycerides 129 mg/dL (0-149) 06/06/18 08:58 Cholesterol 157 mg/dL (0-199) 06/06/18 08:58 LDL Cholesterol Direct 89 mg/dL (0-129) 06/06/18 08:58 HDL Cholesterol 52 mg/dL (30-70) 06/06/18 08:58 Lipase 375 U/L (23-300) H 06/05/18 18:00 Alpha Fetoprotein 2.4 ng/mL (0.0-7.5) 06/07/18 11:36 Carcinoembryonic Ag 1.0 ng/mL (0-3.0) 06/07/18 11:36 CA 125 Antigen 21.8 U/mL (0-35) 06/07/18 11:36 Free T4 0.94 ng/dL (0.78-2.19) 06/06/18 08:58 TSH 3rd Generation 3.28 mIU/L (0.46-4.68) 06/06/18 08:58 Urine Color Yellow (YELLOW) 06/05/18 19:13 Urine Clarity Clear (Clear) 06/05/18 19:13 Urine pH 7.0 (5.0-8.0) 06/05/18 19:13 Ur Specific [place] 1.012 (1.003-1.030) 06/05/18 19:13 Urine Protein 1+ mg/dL (NEGATIVE) H 06/05/18 19:13 Urine Glucose (UA) 3+ mg/dL (Normal) H 06/05/18 19:13 Urine Ketones Negative mg/dL (NEGATIVE) 06/05/18 19:13 Urine Blood Negative (NEGATIVE) 06/05/18 19:13 Urine Nitrate Negative (NEGATIVE) 06/05/18 19:13 Urine Bilirubin Negative (NEGATIVE) 06/05/18 19:13 Urine Urobilinogen Normal mg/dL (0.2-1.0) 06/05/18 19:13 Ur Leukocyte Esterase Neg Jackie/uL (Negative) 06/05/18 19:13 Urine WBC (Auto) < 1 /hpf (0-5) 06/05/18 19:13 Urine RBC (Auto) 1 /hpf (0-3) 06/05/18 19:13 Ur Squamous Epith Cells < 1 /hpf (0-5) 06/05/18 19:13 - Hospital Course Hospital Course: Initial HPI HPI: Patient is a 72 year old female with history of diabetes, hypertension, brain aneurysm s/p coiling and right frontal EVD who presents with for 3 to 4 day history of progressively worsening nausea, vomiting and constipation. She states she has had vomiting about 1 hour after meals, described as nonbloody yellow material, 2 episodes today after her breakfast and lunch today. states that she has had issues with chronic constipation for which she takes Miralax daily. She denies any abdominal pain, but admits she has had some abdominal bloating. states he gave her some milk of magnesia yesterday and patient had small amount of brown stool prior to evaluation. Prior to that, patient had not had a bowel movement for 4 days. states she gets tired and weak intermittently since she had her brain aneurysm 5 year ago. She denies fevers, chills, dizziness, chest pain, palpitations, abdominal pain, urinary complaints including burning, frequency, leg pain. Hospital Course This patient who initially presented with nausea/vomiting/constipation was admitted for changes on CT of the abdomen. Patient was started on IV fluids and protonix, and GI was consulted, Dr. Najera. Patient kept NPO overnight for next- day EGD (06/06) which showed no significant acute findings (details below), and biopsies were sent for path. Patient remained hospitalized as colonoscopy was planned for colonoscopy on 06/08. Patient underwent inpatient colonoscopy with no significant acute findings (details below). Patient was discharged with plans to f/u GI for path results. During hospital course, home meds were restarted for chronic conditions and patient placed on low-dose ISS for DM management. Imaging Abdomen obstructive series XRay 06/05: SOFTWARE WRITER shunt. Otherwise unremarkable. Abd CT 06/05: marked thickening/irregular appearance of antrum, inflammation vs. neoplasm. small hiatal hernia. Obstructive series 06/05: SOFTWARE WRITER shunt, otherwise unremarkable EGD 06/06 Showed esophagitis, small hiatal hernia, gastrostomy present, and erythematous mucosa of the gastric antrum. Biopsies were taken and sent for path. See full report for details. Colonoscopy 06/08: The examined portion of the ileum was normal. The rectum, transverse colon, ascending colon, cecum, and terminal illeum are normal. Erythematous mucosa in ed descending colon. Biopsied. Internal hemorrhoids. See full report for details. Discharge Exam - Head Exam Head Exam: ATRAUMATIC, NORMOCEPHALIC - Eye Exam Eye Exam: EOMI, Normal appearance - ENT Exam ENT Exam: Mucous Membranes Moist - Respiratory Exam Respiratory Exam: Clear to PA & Lateral, NORMAL BREATHING PATTERN. absent: Rhonchi, Wheezes - Cardiovascular Exam Cardiovascular Exam: REGULAR RHYTHM, +S1, +S2 - GI/Abdominal Exam GI & Abdominal Exam: Normal Bowel Sounds, Soft. absent: Tenderness - Extremities Exam Extremities exam: normal inspection - Neurological Exam Neurological exam: Alert, CN II-XII Intact, Oriented x3 - Psychiatric Exam Psychiatric exam: Normal Affect, Normal Mood - Skin Skin Exam: Dry, Intact Discharge Plan - Follow Up Plan Condition: GOOD Disposition: HOME/ ROUTINE Additional Instructions: Patient is cleared for discharge per Dr. Jacobs Patient is to continue taking her home medications including: - Metformin 500 mg tablet by mouth two times per day at 8am and 8pm - Januvia 50 mg tablet by mouth two times per day at 8am and 8pm - Norvasc 5g tablet by mouth once daily at 8am Please make sure to stop taking Miralax daily at home as this can cause nausea and vomiting Please make sure to follow up with your Neurologist due to history of brain aneurysm Please also follow up with GI, Dr. Najera, for biopsy results from your EGD and colonoscopy Please return to ER if symptoms recur or worsen Referrals: Jaylyn Najera [Staff Provider] -
[2018-06-08 13:37] VITALS: PULSE 60; O2SAT 97
[2018-06-08 13:45] VITALS: BP 115/61; RESP 17
--- NOTE | 2018-06-08 17:56 | CARD ---
APPROVED REPORT Date of service: 06/06/2018 EKG Measurement Heart [id number] <Conclusion> Normal sinus rhythm Nonspecific ST abnormality Abnormal ECG
== END 2018-06-08 18:02 | disposition home or self-care (01) | DRG 392 ==
LOC: C.ER 15:59 → C.9E 19:49 → C.3T 20:04
PROVIDERS: ADMIT Hospitalist; ATTEND Hospitalist
PROC: 0DBM8ZX Excision of Descending Colon, Via Natural or Artificial Opening Endoscopic, Diagnostic (ICD-10-PCS; principal; 2018-06-08 11:08)
DX: R11.2 Nausea with vomiting, unspecified (principal); K27.3 Acute peptic ulcer, site unspecified, without hemorrhage or perforation; K59.09 Other constipation; I10 Essential (primary) hypertension; Z93.1 Gastrostomy status; K64.8 Other hemorrhoids; K20.9 Esophagitis, unspecified; T47.4X5A Adverse effect of other laxatives, initial encounter; K44.9 Diaphragmatic hernia without obstruction or gangrene; K31.84 Gastroparesis; E11.43 Type 2 diabetes mellitus with diabetic autonomic (poly)neuropathy; E11.65 Type 2 diabetes mellitus with hyperglycemia; Z88.0 Allergy status to penicillin; Z98.2 Presence of cerebrospinal fluid drainage device; Z86.73 Personal history of transient ischemic attack (TIA), and cerebral infarction without residual deficits

== ENCOUNTER 2018-11-04 20:49 | Emergency (ER) | payer MEDICARE, BC | END 2018-11-05 02:15 | disposition home or self-care (01) | LOC: C.ER 20:49 ==